=== PATIENT | female | born 1950 | race Caucasian/White ===

== ENCOUNTER 2018-05-07 16:00 | Outpatient (CLI) | payer MEDICARE, OTHER, SELFPAY ==
--- NOTE | 2018-05-07 11:20 | DI.MAMMO_ITS ---
SYMPTOM/DIAGNOSIS: SCREENING, Z12.31 MAMMOGRAMS: Mammograms were interpreted according to the usual protocol including computer analysis with CAD system, tomosynthesis and C view imaging. Comparison is made with prior examinations. Breast density, Category C. No masses or microcalcifications are seen. There is nothing to suggest malignancy. IMPRESSION: Negative mammogram. Routine screening is recommended. Category 1C. MQSA ASSESSMENT OF FINDINGS: Negative. Category 1. Patient will receive a letter notifying them of these results. Bi-RADS category C. The breasts are heterogeneously dense, which may obscure small masses.
== END 2018-05-07 16:20 ==
PROVIDERS: Visit Provider Nurse Practitioner Family
DX: Z12.31 Encounter for screening mammogram for malignant neoplasm of breast (principal)
CPT/HCPCS: 77063; 77067

== ENCOUNTER 2018-05-31 12:08 | Outpatient (CLI) | payer MEDICARE, OTHER, SELFPAY ==
--- NOTE | 2018-05-31 11:08 | DI.RAD_ITS ---
SYMPTOMS/DIAGNOSIS: PAIN, SWELLING RIGHT FOOT: There is a nondisplaced fracture seen at the base of the fifth metatarsal. No additional fractures are seen. The bones appear osteopenic. Heel spurs are incidentally noted. IMPRESSION: Nondisplaced fracture of the fifth metatarsal.
== END 2018-05-31 12:28 ==
PROVIDERS: Visit Provider Orthopaedic Surgery
DX: M79.671 Pain in right foot (principal); S92.354A Nondisplaced fracture of fifth metatarsal bone, right foot, initial encounter for closed fracture; I10 Essential (primary) hypertension; W01.0XXA Fall on same level from slipping, tripping and stumbling without subsequent striking against object, initial encounter
CPT/HCPCS: 99211; 99214; 73630

== ENCOUNTER → 2018-10-25 09:32 | Outpatient (BNVA) | payer MEDICARE, OTHER, SELFPAY | PROVIDERS: Visit Provider Orthopaedic Surgery | DX: M70.62 Trochanteric bursitis, left hip (principal) | CPT/HCPCS: 20610; 99212; 99213; J1040 ==

== ENCOUNTER 2018-11-29 12:19 | Outpatient (CLI) | payer MEDICARE, OTHER, SELFPAY ==
--- NOTE | 2018-11-29 10:29 | DI.RAD_ITS ---
SYMPTOMS/DIAGNOSIS: PAIN LEFT HIP AND PELVIS: Two views were obtained. There is mild narrowing of the cartilaginous joint spaces of both hips spurring. Mild hypertrophic spurring of the acetabula noted bilaterally. Mild spurring of the greater trochanter is also noted bilaterally. CONCLUSION: Mild DJD both hips.
== END 2018-11-29 12:39 ==
PROVIDERS: Visit Provider Orthopaedic Surgery
DX: M25.552 Pain in left hip (principal); M16.0 Bilateral primary osteoarthritis of hip; Z98.890 Other specified postprocedural states
CPT/HCPCS: 99211; 99213; 73502

== ENCOUNTER 2018-12-10 00:25 | Outpatient (CLI) | payer MEDICARE, OTHER, SELFPAY ==
--- NOTE | 2018-12-10 09:38 | DI.MRI_ITS ---
SYMPTOMS/DIAGNOSIS: LEFT HIP PAIN, LEFT TROCHANTERIC BURSITIS, M25.552, M70.62 MRI OF THE PELVIS AND LEFT HIP: Comparison is made with plain films dated November,. T1 and fat-suppressed T2 axial, T1 and STIR coronal, fat-suppressed T2 and fat-suppressed proton density sagittal sequences were performed. The exam is somewhat limited by the patient's body habitus. There is a mild amount of edema directly adjacent to the left greater trochanter. There is spurring from the greater trochanter. There is a small amount of joint fluid in the left hip, slightly greater than the right hip. There is no evidence of a fracture. The femoral heads appear intact. The uterus, bladder and ovaries are unremarkable. IMPRESSION: Spurring at the greater trochanter. There is a mild amount of high signal in the distal gluteus medius tendon and around the greater trochanter. There is no significant fluid in the greater trochanteric bursa. No significant tear of the gluteus medius tendon is seen.
== END 2018-12-10 00:45 ==
PROVIDERS: Visit Provider Orthopaedic Surgery
DX: M25.552 Pain in left hip (principal); M70.62 Trochanteric bursitis, left hip
CPT/HCPCS: 73721

== ENCOUNTER → 2018-12-13 10:08 | Outpatient (BNVA) | payer MEDICARE, OTHER, SELFPAY | PROVIDERS: Visit Provider Orthopaedic Surgery | DX: M70.62 Trochanteric bursitis, left hip (principal); I10 Essential (primary) hypertension | CPT/HCPCS: 99213 ==

== ENCOUNTER 2018-12-19 11:28 | Day surgery (SDC) | payer MEDICARE, OTHER, SELFPAY ==
[2018-12-19] VITALS (7 sets, daily range): BP systolic 134–175; BP diastolic 64–88; PULSE 73–109; RESP 12–16; TEMP 36.6–37; O2SAT 94–97
[2018-12-19] MEDS: Lactated Ringers 1,000 ML 80 ML IV ×2 (12:10→14:25)
--- NOTE | 2018-12-19 12:33 | HPE_ITS ---
Assessment and Plan (1) Iliotibial band syndrome, left leg: Current visit: Yes Status: Acute Plan: Educated patient on surgery covering surgical technique, recovery process, benefits and risks including but not limited to risk of infection, blood clot, damage to soft tissue/blood vessels/nerves in detail. After discussion patient gives verbal understanding of risks and elects to proceed with surgery today. Patient had opportunity to have questions answered to her satisfaction. Patient will continue to be scheduled for left trochanter bursa debridement and ITB tenotomy with Dr. Evans on 12/19/18. History of Present Illness Narrative: Ms. Whitmore is a 68-year-old female presents clinic for preoperative visit for scheduled left trochanteric bursa debridement and tenotomy of IT band with Dr. Evans on 12/19/2018. She originally developed atraumatic lateral based hip pain in late August 2018. Pain is aggravated when she first woke up in the morning as well as with prolonged standing and sitting. Patient would frequently have to move during the middle the night to avoid laying directly on the left hip for an extended amount of time. Patient had tried trial of ice, NSAIDs and prednisone taper with only minor symptomatic improvement. Due to patient's continued discomfort she received trochanteric bursal injection on 10/25/2018. Unfortunately, patient did not experience pain relief following injection. She had an MRI completed which as per Dr. Evans's note on 12/13/2018 stated no bony abnormality seen the hip joint on the left is well- maintained. No masses or fluid collection seen. No evidence of avascular necrosis. Following discussion of treatment options at her last orthopedic appointment patient elected to proceed with surgery since she had failed conservative therapies. Pertinent Surgical Information Denies past medical history of: stroke, cardiac issues, angina, asthma, COPD, sleep apnea, renal issues, liver issues, hepatitis, bleeding disorders, seizures, recent migraines, diabetes, autoimmune disorders, thyroid issues Reports history of nausea and vomiting in the past but denies any adverse reactions with her last two operations at [facility]. Denies prior complications from surgery or anesthesia. Review of Systems Constitutional Denies fever(s), Denies frequent falls and Denies headache(s) Eyes Denies change in vision ENT Denies dizziness, Denies ear discharge, Denies headache(s), Denies epistaxis, Denies nasal discharge and Denies sore throat Cardiovascular Denies chest pain, Denies rapid heart rate, Denies irregular heart rhythm, Denies dyspnea, Denies dyspnea on exertion and Denies slow heart rate Respiratory Denies cough, Denies dyspnea, Denies dyspnea on exertion and Denies wheezing Gastrointestinal Denies abdominal pain, Denies melena, Denies hematochezia, Denies constipation, Denies diarrhea, Denies nausea and Denies vomiting Genitourinary Denies hematuria, Denies dysuria and Denies urinary urgency Musculoskeletal Reports as per HPI, Denies numbness and Denies tingling Neurologic Denies dizziness, Denies frequent falls, Denies headache(s), Denies numbness and Denies tingling Psychiatric Reports anxiety and Denies depression Allergic/Immunologic Denies wheezing PFSH Medical History Migraine (Resolved) Pancreatitis (Resolved) Cerebral meningioma Obesity History of postoperative nausea and vomiting (Resolved) Collar bone fracture (Resolved) Iliotibial band syndrome, left leg (Acute) Anxiety (Chronic) Hypertension (Chronic) History of gastroesophageal reflux (GERD) (Chronic) Trimalleolar fracture (Resolved 12/20/13) Lymphedema (Acute 10/03/17) Irritable colon (Acute) Hyperbilirubinemia (Acute) Gastritis (Acute 08/09/13) Foot pain, bilateral (Acute 03/05/15) Depressive disorder (Chronic) Chronic pain of left knee (Chronic 10/05/15) Ankle fracture (Resolved 06/03/14) Surgical History Appendectomy Cholecystectomy (~1976) Colonoscopy - IV Sedation (~2004) PROCEDURES section Ligation of fallopian tube (~1976) History of surgery (Chronic) Social History Smoking/Tobacco Use Status: Never Alcohol Intake: never Drug use: Never Substance use type: does not use Do you feel safe at home: Yes Do you feel safe in your relationship?: Yes Meds Home Medications Medication Instructions Recorded Confirmed Type aspirin [Ecotrin Low Strength] 81 mg PO DAILY tab-cap 01/28/13 12/19/18 History promethazine 25 mg PO Q12H PRN #12 tab-cap 09/18/17 12/19/18 History citalopram 30 mg PO DAILY #135 tab-cap 03/26/18 12/19/18 Rx hydrochlorothiazide 12.5 mg capsule 12.5 mg PO DAILY #30 cap 12/03/18 12/19/18 Rx lisinopril 20 mg tablet 20 mg PO DAILY #30 tab 12/03/18 12/19/18 Rx ibuprofen-diphenhydramine cit 1 cap PO QHS 12/19/18 12/19/18 History [Advil PM] Allergies Allergy/AdvReac Type Severity Reaction Status Date / Time Penicillins Allergy Intermediate HIVES Verified 12/19/18 11:53 prochlorperazine edisylate AdvReac Intermediate DYSTONIA Verified 12/19/18 11:53 [From Compazine] Exam Const General: cooperative and no acute distress [facility] Head: normal to inspection, normocephalic and atraumatic Ears: external ears normal General nose exam: external nose normal and no nasal discharge Face and sinus: face symmetric Eyes General: appearance normal, both eyes and all related structures Resp Effort & Inspection: normal respiratory effort and able to speak in complete sentences Auscultation: clear to auscultation bilaterally, no rales, no rhonchi and no wheezes Cardio Heart Sounds: S1 normal, S2 normal and no murmurs Results Last Vital Signs Temp 37.0 C 12/19/18 11:59 Pulse 73 12/19/18 11:59 Resp 16 12/19/18 11:59 BP 157/85 H 12/19/18 11:59 Pulse Ox 94 L 12/19/18 11:59
[2018-12-19] MEDS: ceFAZolin 2 GM/50 ML BAG IVPB (13:55)
--- NOTE | 2018-12-19 15:00 | W.PM.DSUDISC ---
Discharge Plan Disposition Patient Disposition: HOME Condition: Good Discharge Details Reason For Visit: Tenotomy of iliotibial band L Attending Provider: Venkatesh Evans Primary Care Provider: Stephanie Hernández Home Meds and New Rx's Prescriptions: New hydrocodone-acetaminophen 5-325 mg tablet 1 tab PO Q4H PRN (Reason: pain) Qty: 20 RF: 0 ibuprofen 800 mg tablet 800 mg PO TID Qty: 30 RF: 0 Continued aspirin [Ecotrin Low Strength] 81 MG tablet,delayed release (DR/EC) 81 mg PO DAILY RF: 0 promethazine 25 MG tablet 25 mg PO Q12H PRNQty: 12 RF: 1 citalopram 20 MG tablet 30 mg PO DAILY Qty: 135 RF: 4 hydrochlorothiazide 12.5 mg capsule 12.5 mg PO DAILY Qty: 30 RF: 6 lisinopril 20 mg tablet 20 mg PO DAILY Qty: 30 RF: 6 ibuprofen-diphenhydramine cit [Advil PM] 200-38 mg Tablet 1 cap PO QHS RF: 0 Discharge Instructions Additional Instructions: Crutches to walk. May put as much weight on L leg as your discomfort allows. Apply ice bag or frozen vegetables to outside of hip/thigh 4-6 times/day for 1 hour each time to decrease pain and swelling. May remove dressings, shower and get incision wet after 72 hours. After showering, pat incision dry and cover with light gauze dressing. Take ibuprofen as prescribed for 10 days. Take hydrocodone ,if needed, for breakthru pain. Follow up with in 2 weeks. Referrals: Venkatesh Evans MD [ [facility] STAFF PHYSICIAN] - (f/u in 2 weeks.) Equipment/Supplies: Partial Weight Bearing Crutches Activity:: Activity as Tolerated Remove Dressings/Wound Care:: 72 hours Shower/Bathe:: 72 hours Diet:: As Tolerated Discharge Orders Discharge Orders: Discharge Order (Routine); Ordered 12/19/18 Ordered By: Venkatesh Evans DS: Diagnosis Discharge Diagnosis (1) Iliotibial band syndrome, left leg: Status: Acute (2) Trochanteric bursitis of left hip: Status: Acute
--- NOTE | 2018-12-20 09:36 | ROE_ITS ---
REPORT OF OPERATIVE PROCEDURE DATE OF PROCEDURE December 19, 2018 PREOPERATIVE DIAGNOSES Chronic trochanteric bursitis, contracted iliotibial band left. POSTOPERATIVE DIAGNOSES Chronic trochanteric bursitis, contracted iliotibial band left. PROCEDURES Tenotomy iliotibial band on the left, excision of trochanteric bursa left. ANESTHESIA General by Andrew Wu C.R.N.A. SURGEON Venkatesh Evans M.D. CIVIL PREPAREDNESS COORDINATOR Juliocesar Osborne INCIDATIONS This is a 68-year-old white female with chronic trochanteric bursitis on the left. This has been pres ent for several years. It has not responded to conservative treatment. She finds the pain now to be d isabling. Tenotomy of the iliotibial band with excision of the trochanteric bursa was recommended to alleviate her pain due to the failure of conservative treatment. The risks and complications of the procedure were explained to the patient in detail preoperatively. PROCEDURE DESCRIPTION The patient was taken to the Operating Room 12/19/2018. She was placed supine on the operating table. A general anesthetic was administered. She was then turned to the left lateral position. The left la teral thigh was prepped and draped in the usual sterile fashion. A longitudinal incision was made beg inning at the proximal tip of the greater trochanter and extending distally about 6 or 7 inches. A lo nger incision was necessary because obesity. The incision was carried through the subcu fat down to t he iliotibial band. Subcutaneous bleeders were cauterized. The IT band was then longitudinally incise d exposing the trochanteric bursa. The trochanteric bursa was excised. At that point, I placed my fin ryan between the iliotibial band and the lateral flare of the femur at the trochanter. At the point of maximum compression, I performed a transverse tenotomy of the IT band. I repaired the longitudinal incision of the IT band only with interrupted [id number] sutures of #1-Vicryl suture material. The transverse tenotomy was left alone. The wound was irrigated with Betadine and saline solution. The wound margins were infiltrated with 0. 05% Marcaine with epinephrine solution. The subcu was approximated with interrupted #2-0 Vicryl sutur es and the skin edges were approximated with tension-relieving sutures [id number] using #3-0 N ylon. The wound was dressed with Xeroform gauze, sterile gauze 4x4s and ABD pad and tape with elastic tape for a pressure dressing. The patient was turned supine. Her anesthesia was reversed without complications. She was discharged to the Recovery Room in good condition. ESTIMATED BLOOD LOSS 50 cc. The patient was later discharged home from the Day Surgery Unit when fully recovered from her General anesthesia. She was given instructions to use crutches to walk. She may be weightbearing as tolerate d to the left leg. She should apply ice to the incision every 4 to 6 hours for an hour at a time to help with pain and s welling. She was given a prescription for inflammation and swelling of ibuprofen 800 mg p.o. t.i.d. for 10 day s. She was given a prescription for breakthrough pain of hydrocodone with APAP 5/325 1 tablet every 4 ho urs as needed. She may remove her dressings, shower and get her incision wet after 72 hours. She is to cover the inc ision with a light gauze dressing after showering. She should followup with Dr. Evans in two weeks.
== END 2018-12-19 17:21 | disposition home or self-care (01) ==
PROVIDERS: Visit Provider Orthopaedic Surgery
PROC: (CPT 27062; principal; 2018-12-19 14:00)
DX: M70.62 Trochanteric bursitis, left hip (principal); M76.32 Iliotibial band syndrome, left leg; I10 Essential (primary) hypertension
CPT/HCPCS: 27062; 27305; NC; J0131; J0690; J1100; J2370; J2405

== ENCOUNTER → 2019-01-02 09:15 | Outpatient (BNVA) | payer MEDICARE, OTHER, SELFPAY | PROVIDERS: Visit Provider Orthopaedic Surgery | DX: Z47.89 Encounter for other orthopedic aftercare (principal); M70.62 Trochanteric bursitis, left hip ==

== ENCOUNTER → 2019-01-30 09:15 | Outpatient (BNVA) | payer MEDICARE, OTHER, SELFPAY | PROVIDERS: Visit Provider Orthopaedic Surgery | DX: Z47.89 Encounter for other orthopedic aftercare (principal); M25.552 Pain in left hip; I10 Essential (primary) hypertension ==

== ENCOUNTER → 2019-03-13 09:27 | Outpatient (BNVA) | payer MEDICARE, OTHER, SELFPAY | PROVIDERS: Visit Provider Orthopaedic Surgery | DX: Z47.89 Encounter for other orthopedic aftercare (principal); I10 Essential (primary) hypertension; M70.62 Trochanteric bursitis, left hip ==

== ENCOUNTER → 2019-04-24 08:48 | Outpatient (BNVA) | payer MEDICARE, OTHER, SELFPAY | PROVIDERS: Visit Provider Orthopaedic Surgery | DX: Z47.89 Encounter for other orthopedic aftercare (principal); I10 Essential (primary) hypertension; M76.32 Iliotibial band syndrome, left leg | CPT/HCPCS: 99213 ==

== ENCOUNTER 2019-06-03 00:51 | Outpatient (CLI) | payer MEDICARE, OTHER, SELFPAY ==
--- NOTE | 2019-06-03 17:13 | DI.MAMMO_ITS ---
EXAM: MAMMO SCREENING CLINICAL HISTORY: SCREENING Z12.39 TECHNIQUE: Mammograms were interpreted according to the usual protocol including computer analysis w [facility] CAD system, tomosynthesis and C-view imaging. FINDINGS: The breasts are heterogeneously dense. No dominant mass or clumped microcalcification identified in e ither breast. Current examination is compared with previous examinations including April 2018 and there has been no gross interval change appearance in comparison with the previous studies. IMPRESSION: No specific evidence of malignancy at this time. Routine screening examinations are suggested at yea rly intervals due to the family history of breast carcinoma. Category 1. Breast density, category C. BI-RADS Cat 1 - Negative. Breast Density - Category C - Heterogeneously dense.
== END 2019-06-03 01:11 ==
PROVIDERS: Visit Provider Nurse Practitioner Family
DX: Z12.31 Encounter for screening mammogram for malignant neoplasm of breast (principal); Z80.3 Family history of malignant neoplasm of breast
CPT/HCPCS: 77063; 77067

== ENCOUNTER 2019-06-18 02:37 | Outpatient (CLI) | payer MEDICARE, OTHER, SELFPAY ==
[2019-06-18 11:09] LABS: ALT 36 U/L (14-59); AST 22 U/L (15-37); Alkaline Phosphatase 70 U/L (46-116); Anion Gap 6.6 mmol/L (3-11); BUN 21 mg/dL (7-18); Bilirubin, Total 1.7 mg/dL (0.2-1.0); CO2 30.4 mmol/L (21.0-32.0); CREATININE 0.72 mg/dL (0.55-1.02); Calcium 8.8 mg/dL (8.5-10.1); Chloride 104 mmol/L (98-107); Glucose 101 mg/dL (70-100); Potassium 4.2 mmol/L (3.5-5.1); Sodium 141 mmol/L (136-145); Total Protein 7.2 g/dL (6.4-8.2)
== END 2019-06-18 02:57 ==
DX: I10 Essential (primary) hypertension (principal)
CPT/HCPCS: 36415; 80053

== ENCOUNTER 2019-07-07 10:12 | Emergency (ER) | payer MEDICARE, SELFPAY ==
[2019-07-07] VITALS (23 sets, daily range): BP systolic 146–196; BP diastolic 64–81; PULSE 80–102; RESP 15–23; TEMP 37.2; O2SAT 92–97
--- NOTE | 2019-07-07 10:22 | ED.GENADUL_ITS ---
Discharge Plan Disposition Patient Disposition: HOME Condition: Improving Discharge Details Chief Complaint: GenMedical Clinical Impression: Pneumonia Primary Care Provider: Stephanie Hernández ED Provider: Karoline Alcaraz Home Meds and New Rx's Prescriptions: New doxycycline hyclate 100 mg capsule 100 mg PO BID Qty: 14 RF: 0 Continued Prevnar 13 (PF) 0.5 mL syringe 0.5 ml IM ONCE Qty: 0.5 RF: 0 Shingrix (PF) 50 mcg/0.5 mL suspension for reconstitution 0.5 ml IM ONCE Qty: 1 RF: 0 hydrochlorothiazide 12.5 mg capsule 12.5 mg PO DAILY Qty: 90 RF: 4 lisinopril 20 mg tablet 20 mg PO DAILY Qty: 90 RF: 4 aspirin [Ecotrin Low Strength] 81 MG tablet,delayed release (DR/EC) 81 mg PO DAILY RF: 0 citalopram 20 mg tablet 30 mg PO DAILY Qty: 135 RF: 4 promethazine 25 mg tablet 25 mg PO Q12H PRN (Reason: nausea and vomiting) Qty: 30 RF: 0 ibuprofen-diphenhydramine cit [Advil PM] 200-38 mg Tablet 1 cap PO QHS RF: 0 Discharge Instructions Instructions: Pneumonia (ED) Additional Instructions: Encourage hydration. Tylenol and ibuprofen as needed for discomfort. Please take the doxycycline as prescribed. Please follow-up with primary care provider this week for reevaluation. If you develop increased headache, difficulty breathing, shortness of breath, fevers or other new/worsening symptoms please seek care urgently once again. Referrals: Stephanie Hernández NP [Primary Care Provider] - Discharge Data Discharge Date/Time-TO BE ENTERED AT DEPARTURE: 07/07/19 13:42 Medical Decision Making Patient is a 69-year-old female, accompanied by her , with chief complaint of cough, general malaise, headache, and feeling nauseated the past 2 weeks. States his symptoms initially began with cough and mild URI symptoms. Had an episode 2 weeks ago brief vertigo. Has not had a recurrence of this since. Patient reports she has had similar headaches historically and was diagnosed with migraine variant. Patient states that his headache has been intermittent since and there was no other symptoms began 2 weeks ago. No thunderclap onset, pain has been variable, feels similar to headaches in the past. Currently endorsing nausea. Denies fevers but has been feeling warm. States that she has had a soft bowel movements. Endorses cough has been productive. Denies shortness of breath. No recent travel. No lower extremity edema or pain. Denies any chest pain or pleuritic pain. Feels that I cannot take a full deep breath. On exam, patient appears nontoxic. She is resting comfortably. While in the room, HR was in the 80s although initially documented as 102 by nursing staff. O2 97%. Afebrile. Hypertensive at 196/81 although this quickly came down to the 170s. Patient states that over the past month she has been more hypertensive than typical despite taking her medications. Reviewed recent note, PCP had asked that she track her BP while at home. Patient states that she took this once at home with systolic in the 170s and once at the dentists with systolic in the 180s. She has a normal neurologic exam. No temporal pain with palpation. ECG reviewed by Dr. Arguelles, NSR rate of 90, no acute ischemic changes noted. Labs reviewed. Leukocytosis a white count 15. Absolute neutrophil elevated at 12.1. Coags normal. Chemistry noticed without significant abnormality. P is elevated at 7.36. ESR is elevated at 53. Head CT reviewed by radiologist: FINDINGS: Brain: There is no evidence for acute intracranial hemorrhage. Cisterns and sulci appear intact. Harrington-white matter differentiation is appropriate. Ventricles: Normal. No ventriculomegaly. Bones/joints: Status post right temporal craniotomy change. Sinuses: Visualized sinuses are unremarkable. No fluid levels. Mastoid air cells: Visualized mastoid air cells are well aerated. Soft tissues: Unremarkable. IMPRESSION: No evidence for acute intracranial abnormality. Chest x-ray reviewed by radiologist: FINDINGS: Lungs: There is some minimal coarse increased markings at the right lung base medially. There are some scattered granulomata seen in both lungs upper lobe and right lower lobe. Pleural space: Unremarkable. No pleural effusion. No pneumothorax. Heart/Mediastinum: Unremarkable. No cardiomegaly. Bones/joints: Mild thoracic spondylosis. IMPRESSION: Probable right lower lobe atelectasis. Early consolidation considered less likely but not excludable. History of early consolidation with make sense clinically given the patient's URI symptoms, cough, leukocytosis. I did consider pulmonary embolism but as patient is not tachycardic, hypoxic have lower extremity discomfort, I find this less likely. As the patient has an acute infection, I believe that her d-dimer is likely be falsely elevated and do not feel that this is appropriate testing at this time. Rather, prefer to treat the patient with doxycycline and have close follow-up with primary care. She is given strict return precautions. This infection is likely causing her known migraines to exacerbate once again. While the patient is having elevated inflammatory markers at this time, she does not have any temporal pain with palpation, no jaw claudication. Feel that temporal arteritis is less likely particularly as there is other source of her symptoms at this point and she has had this exact headache multiple times historically. Patient is discussed my differentials at length. This point, her symptoms are most consistent with a finding of pneumonia on exam. I encouraged hydration. She is feeling much improved after migraine cocktail, was able to tolerate antibiotics well. She is requesting discharge point. She is able to hydrate orally. Is able to return with any new or worsening symptoms. She will follow- up with her primary care this week for reevaluation. She is given strict return precautions. All of her questions and concerns were addressed and she is in agreement this plan. HPI General Mode of arrival: ambulatory . Date/Time Provider Initiated Documentation: 07/07/19 10:22 . Limitations to Documentation: no limitations . Information obtained by: patient, family () and RN notes reviewed . HPI Narrative: Patient is a 69 year old female, accompanied by , with c/c of NGUYEN, bahai pain, feeling out of it . States that symptoms began 2 weeks ago. Initially, she was feeling cloudy and had a brief episode of vertigo. States she has not had vertigo historically but had a sudden onset of the room spinning which resolved quickly. No symptoms like this since. Reports chronic migraine variants that typically manifested with mild NGUYEN and bilateral bahai pain. Had surgical excision of mass this right bahai but no change in symptoms post operatively. Also endorses productive cough for that time. Denies SOB but f eels like I cant take a deep breath. Denies pleuritic pain. Denies CP. No objective fevers but endorses feeling warm. Related Data Home Medications Medication Instructions Recorded Confirmed aspirin [Ecotrin Low Strength] 81 mg PO DAILY tab-cap 01/28/13 07/07/19 ibuprofen-diphenhydramine cit 1 cap PO QHS 12/19/18 07/07/19 [Advil PM] citalopram 20 mg tablet 30 mg PO DAILY #135 tab-cap 04/08/19 07/07/19 hydrochlorothiazide 12.5 mg capsule 12.5 mg PO DAILY #90 cap 05/29/19 07/07/19 lisinopril 20 mg tablet 20 mg PO DAILY #90 tab 05/29/19 07/07/19 pneumoc 13-heike conj-dip cr(PF) 0.5 0.5 ml IM ONCE #0.5 ml 05/29/19 07/07/19 mL IM syringe varicella-zoster [id number] (PF) 50 0.5 ml IM ONCE #1 each 05/29/19 07/07/19 mcg/0.5 mL IM susp, kit promethazine 25 mg tablet 25 mg PO Q12H PRN #30 tab 07/04/19 07/07/19 doxycycline hyclate 100 mg PO BID #14 cap 07/07/19 Previous Rx's Medication Instructions Recorded citalopram 20 mg tablet 30 mg PO DAILY #135 tab-cap 04/08/19 hydrochlorothiazide 12.5 mg capsule 12.5 mg PO DAILY #90 cap 05/29/19 lisinopril 20 mg tablet 20 mg PO DAILY #90 tab 05/29/19 pneumoc 13-heike conj-dip cr(PF) 0.5 0.5 ml IM ONCE #0.5 ml 05/29/19 mL IM syringe varicella-zoster [id number] (PF) 50 0.5 ml IM ONCE #1 each 05/29/19 mcg/0.5 mL IM susp, kit promethazine 25 mg tablet 25 mg PO Q12H PRN #30 tab 07/04/19 doxycycline hyclate 100 mg PO BID #14 cap 07/07/19 Allergies Allergy/AdvReac Type Severity Reaction Status Date / Time Penicillins Allergy Intermediate HIVES Verified 07/07/19 10:21 prochlorperazine edisylate AdvReac Intermediate DYSTONIA Verified 07/07/19 10:21 [From Compazine] General Stated Complaint: GenMedical BRAN: 3 Review of Systems Constitutional Constitutional: Reports as per HPI, Denies chills, Reports fatigue, Denies fever(s), Reports headache(s), Denies lethargy, Reports malaise and Denies poor appetite Eyes Eyes: Denies change in vision ENT Ears, Nose, Mouth, and Throat: Denies dizziness and Reports headache(s) Cardiovascular Cardiovascular: Reports as per HPI, Denies chest pain, Denies chest pain with activity, Denies pedal edema, Denies irregular heart rhythm, Denies leg edema, Reports lightheadedness, Denies radiating jaw, neck or arm pain, Denies palpitations (Reports that she has had rapid heart rate historically but none recently), Denies dyspnea and Denies dyspnea on exertion Respiratory Respiratory: Reports as per HPI, Denies chest congestion, Reports cough, Denies hemoptysis, Denies excessive phlegm production, Denies pain on inspiration, Denies pain with cough, Denies dyspnea, Denies dyspnea on exertion and Denies wheezing Gastrointestinal Gastrointestinal: Reports as per HPI, Denies abdominal pain, Reports change in stool character (states this has been softer than normal), Denies diarrhea, Reports nausea and Denies vomiting Musculoskeletal Musculoskeletal: Reports as per HPI and Denies back pain Integumentary/Breasts Skin/Breast: Reports as per HPI and Denies rash Neurologic Neurologic: Reports as per HPI, Denies dizziness and Reports headache(s) Endocrine Endocrine: Reports fatigue and Denies palpitations (Reports that she has had rapid heart rate historically but none recently) Allergic/Immunologic Allergic/Immunologic: Denies wheezing [facility] Medical History Ankle fracture (Resolved 06/03/14) right, ORIF 01/01 Anxiety (Chronic) Cerebral meningioma Benign 2003 Chronic pain of left knee (Chronic 10/05/15) Collar bone fracture (Resolved) Depressive disorder (Chronic) anxiety Foot pain, bilateral (Acute 03/05/15) Gastritis (Acute 08/09/13) 2008 Walko, EGD, bile gastritis (2009 GI eval at [facility], visceral hypersensitivity) History of gastroesophageal reflux (GERD) (Chronic) History of postoperative nausea and vomiting (Resolved) Hyperbilirubinemia (Acute) GILBERT'S DISEASE Hypertension (Chronic) Iliotibial band syndrome, left leg (Acute) Irritable colon (Acute) Lymphedema (Acute 10/03/17) right axilla Migraine (Resolved) FOLLOWED BY DR AMITA MONTEMAYOR, [facility] Reports no longer experiences migraines Obesity Pancreatitis (Resolved) Trimalleolar fracture (Resolved 12/20/13) Surgical History Appendectomy section 1973,1976 Cholecystectomy (~1976) Colonoscopy - IV Sedation (~2004) History of surgery (Chronic) a. Cholecystectomy. b. . c. Brain surgery. Ligation of fallopian tube (~1976) PROCEDURES CRANIOTOMY, 08/24 FRONTAL TEMPORAL CRANIOTOMY FOR RESECTION OF MENINGIOMA EXPLORATORY LAPAROTOMY ENDOSC RETRO CHOLANGIOPA Repair of R ankle Fx 2013;RIGHT COLLORBONE REPAIR Family History (Updated 05/31/19 @ 10:00 by Vincent Edge) Mother , age 47 Depression Father , age 84 Bladder cancer Sister Bladder cancer Sister Stroke Sister Primary fibromyalgia syndrome Brother Epilepsy Mental retardation Brother , age 70 Cancer Maternal Grandfather Heart disease Paternal Grandfather Cancer Maternal Grandmother Stroke Paternal Grandmother No problems noted. Daughter Wilms' tumor Daughter Depression Daughter Depression Social History Smoking/Tobacco Use Status: Never Alcohol Intake: never Drug use: Never Substance use type: does not use Caregiver/Support person: No Household members: spouse Housing: house Do you need help understanding health information?: Rarely Pets and animals: No Sexually active: No Do you think of yourself as: straight/heterosexual Current gender identity: female What is your relationship status?: How often do you talk on the phone with friends or family?: three or more times per week How often do you get together with friends or relatives?: once per week How often do you attend roman catholic or scientology services?: decline to answer Do you belong to any clubs or organized social groups?: no Panel score (0-1 are the most socially isolated patients): 2 What type of physical activity do you participate in: walking and other Duration: 15-30 minutes/day Frequency: 3-4 times per week Laxmi/Buddhism: Congregational Special laxmi needs: No Seatbelt use: always Drive intox or ride w/intox recycle driver: No Do you feel safe at home: Yes Do you feel safe in your relationship?: Yes Female Reproductive History Menstrual Menopause type: natural History History 3 Para 3 Hx # Term Pregnancies Multiple births Hx # Pregnancies Ectopic pregnancies AB induced Hx Number of Living Children AB spontaneous Exam Const General: cooperative, healthy appearing, comfortable, no acute distress and well developed Nutritional Appearance: well nourished and overweight Orientation: alert, awake and oriented x3 [facility] Head: normal to inspection, normocephalic and atraumatic Ears: hearing grossly normal bilaterally, external ears normal and TM's normal bilaterally General nose exam: external nose normal and nares normal Face and sinus: normal facial exam and sinuses nontender Mouth: oral mucosae normal, lip normal, moist mucous membranes, no muffled voice and no trismus Teeth and gingiva: dentition normal Throat: posterior oropharynx normal, tonsils normal and uvula midline Eyes General: appearance normal, both eyes and all related structures Visual Castillo: normal visual castillo by confrontation Alignment and Position: alignment normal Periorbital: periorbital findings normal Eyelids: eyelids normal Conjunctivae: conjunctivae normal Pupils: PERRL EOM: EOM intact bilaterally Chest Chest: normal inspection of the chest, normal palpation of entire chest wall and no crepitus Resp Effort & Inspection: normal respiratory effort, able to speak in complete sentences and no respiratory distress Auscultation: clear to auscultation bilaterally, no rales, no rhonchi and no wheezes Cardio Rate: regular rate Rhythm: regular rhythm Heart Sounds: S1 normal and S2 normal GI Inspection: normal to inspection, no edema, non-distended and obesity Palpation: soft, no hepatosplenomegaly, not firm, no guarding, not rigid and nontender Auscultation: normal bowel sounds Back/Spine/Pelvis Back: no CVA tenderness Thoracic/Lumbar Spine: thoracic and lumbar spine normal to inspection Skin General skin exam: no rashes or lesions noted Trauma: no lacerations or abrasions Neuro General: alert, awake and oriented x3 Cranial Nerves: CN's II-XI intact bilaterally Cognition: normal cognition Speech: speech normal Gait: normal gait Motor: muscle tone normal throughout, strength 5/5 throughout, no pronator drift, no movement abnormalities noted and no fasciculations Sensory Exam: no sensory deficits noted Coordination: [id number] test normal, [id number] test normal and rapid alternating movement UE normal Extrem General: normal to inspection, normal capillary refill, no pedal edema, no calf tenderness and normal gait Psych Appearance: grossly normal and well kempt Mental Status: mental status grossly normal Speech and Movement: speech and movement normal Course Vital Signs Vital signs: Vital Signs Temperature 37.2 C 07/07/19 10:18 Pulse 102 H 07/07/19 10:18 Respiratory Rate 20 07/07/19 10:18 Blood Pressure 196/81 H 07/07/19 10:18 Pulse Oximetry 97 07/07/19 10:18 Temperature 37.2 C 07/07/19 10:18 Temperature Source Tympanic 07/07/19 10:18 Pulse 102 H 07/07/19 10:18 Respiratory Rate 20 07/07/19 10:18 Blood Pressure 196/81 H 07/07/19 10:18 Pulse Oximetry 97 07/07/19 10:18 Oxygen Delivery Method Room Air 07/07/19 10:18 Oxygen Flow Rate 0 07/07/19 10:18 Pain Level 3 07/07/19 10:18
[2019-07-07] MEDS: Normal Saline Flush 10 ML SYR IVP (11:00)
[2019-07-07] MEDS: Normal Saline 1,000 ML 150 ML IV (11:05)
[2019-07-07 11:06] LABS: Abs Immature Grans 0.11 k/cumm (0.0-0.09); Absolute Monocyte Count 1.11 k/cumm (0.11-0.7); Basophils % 0.3; Eosinophils % 3.3; HCT 37.7 % (36.0-46.0); HGB 12.6 g/dL (12.0-15.5); Immature Grans % 0.7; Lymphocytes % 8.6; Mean Corp. HGB Concentration 33.4 g/dL (32.0-36.0); Mean Corpuscular Hemoglobin 28.8 pg (27.0-33.0); Mean Corpuscular Volume 86.3 fL (80-95); Mean Platelet Volume 10.4 fL (8.0-11.0); Monocytes % 7.3; Neutrophils % 79.8; Platelet Count 297 x1000/uL (130-400); RBC 4.37 m/cumm (4.00-5.20); White Blood Cell Count 15.16 k/cumm (4.4-10.8)
[2019-07-07 11:10] LABS: Absolute Basophil Count 0.05 k/cumm (0.0-0.2)
[2019-07-07 11:15] LABS: PTT Activated 28.6 sec (21.0-31.4); Prothrombin Time 10.1 sec (9.3-11.0)
[2019-07-07 11:17] LABS: ALT 25 U/L (14-59); AST 18 U/L (15-37); Albumin 3.7 g/dL (3.4-5.0); Alkaline Phosphatase 76 U/L (46-116); Anion Gap 6.8 mmol/L (3-11); BUN 11 mg/dL (7-18); Bilirubin, Total 1.5 mg/dL (0.2-1.0); C-Reactive Protein 7.36 mg/dL (0.0-0.3); CO2 29.2 mmol/L (21.0-32.0); CREATININE 0.72 mg/dL (0.55-1.02); Calcium 8.8 mg/dL (8.5-10.1); Chloride 103 mmol/L (98-107); Glucose 114 mg/dL (70-100); Potassium 3.9 mmol/L (3.5-5.1); Sodium 139 mmol/L (136-145); Total Protein 7.8 g/dL (6.4-8.2); Troponin I < 0.05 ng/mL (0.00-0.06)
--- NOTE | 2019-07-07 11:20 | DI.CT_ITS ---
EXAM: CT HEAD WO CLINICAL HISTORY: headache TECHNIQUE: Noncontrast . COMPARISON: HEAD WITHOUT CONTRAST from 05/24/2012 FINDINGS: The right temporal craniotomy is again noted. No intracranial hemorrhage, mass or infarct is seen. Th e ventricles are normal in size. There is no evidence of skull fracture. The orbits and visualized po rtions of the sinuses and mastoid air cells are unremarkable IMPRESSION: Old right temporal craniotomy. No acute abnormality.
--- NOTE | 2019-07-07 11:29 | DI.VRAD_ITS ---
PROCEDURE INFORMATION: Exam: CT Head Without Contrast Exam date and time: 07/07/2019 11:17 AM Clinical history: 69 years old, female; Other: Headache; Prior surgery; Surgery date: 6+ months; Surgery type: S/P right temporal hemangioma removal in 2003 per patient TECHNIQUE: Imaging protocol: Computed tomography of the head without contrast. Radiation optimization: All CT scans at this facility use at least one of these dose optimization techniques: automated exposure control; mA and/or kV adjustment per patient size (includes targeted exams where dose is matched to clinical indication); or iterative reconstruction. COMPARISON: No relevant prior studies available. FINDINGS: Brain: There is no evidence for acute intracranial hemorrhage. Cisterns and sulci appear intact. Harrington-white matter differentiation is appropriate. Ventricles: Normal. No ventriculomegaly. Bones/joints: Status post right temporal craniotomy change. Sinuses: Visualized sinuses are unremarkable. No fluid levels. Mastoid air cells: Visualized mastoid air cells are well aerated. Soft tissues: Unremarkable. IMPRESSION: No evidence for acute intracranial abnormality. COMMENT: Preliminary interpretation is based on receipt of 956 image(s). A final report will be issued subsequently. Dictated and Authenticated by: Kelsy Stokes MD. Ordering:LOU Ramey MD
--- NOTE | 2019-07-07 11:30 | DI.RAD_ITS ---
EXAM: XR CHEST 2V PA LATERAL INDICATION: SOB. COMPARISON: RIGHT CLAVICLE from 12/20/2013 TECHNIQUE: 2D digital imaging was performed. FINDINGS: Heart size is normal. The aorta is mildly tortuous but normal in diameter. There are mild chronic interstitial changes. No superimposed infiltrate, effusion or pulmonary edema edema is seen. Degene rative changes and scoliosis the thoracic spine. IMPRESSION: No acute abnormality.
--- NOTE | 2019-07-07 11:32 | DI.VRAD_ITS ---
PROCEDURE INFORMATION: Exam: XR Chest, 2 Views Exam date and time: 07/07/2019 11:24 AM Clinical history: 69 years old, female; Other: SOB TECHNIQUE: Imaging protocol: XR of the chest Views: 2 views. COMPARISON: CR RIGHT CLAVICLE LIMITED 1 VIEW 02/28/2014 10:27 AM FINDINGS: Lungs: There is some minimal coarse increased markings at the right lung base medially. There are some scattered granulomata seen in both lungs upper lobe and right lower lobe. Pleural space: Unremarkable. No pleural effusion. No pneumothorax. Heart/Mediastinum: Unremarkable. No cardiomegaly. Bones/joints: Mild thoracic spondylosis. IMPRESSION: Probable right lower lobe atelectasis. Early consolidation considered less likely but not excludable. COMMENT: Preliminary interpretation is based on receipt of 2 image(s). A final report will be issued subsequently. Dictated and Authenticated by: Kelsy Stokes MD. Ordering:LOU Ramey MD
[2019-07-07 11:37] LABS: Bilirubin Negative (Negative); Blood Negative (Negative); Clarity Clear (Clear); Glucose Negative (Negative); Ketones Negative (Negative); Leukocyte Esterase Negative (Negative); Nitrite Negative (Negative); Specific Gravity 1.015 (1.005-1.025); pH 8.5 (5-8)
[2019-07-07] MEDS: Lisinopril 10 MG TAB 20 MG PO (11:49)
[2019-07-07] MEDS: hydroCHLOROthiazide 25 MG TAB 12.5 MG PO (11:50)
[2019-07-07 12:11] LABS: ESR 53 mm/hr (0-30)
[2019-07-07] MEDS: Metoclopramide 10 MG/2 ML VIAL IVP (12:38)
[2019-07-07] MEDS: diphenhydrAMINE 50 MG/ML VIAL 25 MG IVP (12:39)
[2019-07-07] MEDS: Ketorolac 15 MG/ML VIAL IVP (12:41)
[2019-07-07] MEDS: Doxycycline Hyclate 100 MG CAP PO (12:42)
== END 2019-07-07 13:42 | disposition home or self-care (01) ==
PROVIDERS: Emergency Provider Physician Assistant
DX: J18.9 Pneumonia, unspecified organism (principal); R51 Headache; I10 Essential (primary) hypertension
CPT/HCPCS: 36415; 80053; 85652; 93005; 96361; 96374; 96375; 99285; 70450; 71046; 81003; 83735; 84484; 85025; 85610; 85730; 86140; 93010; J1200; J1885; J2765

== ENCOUNTER 2019-10-10 01:33 | Outpatient (CLI) | payer MEDICARE, SELFPAY ==
--- NOTE | 2019-10-10 09:15 | DI.US_ITS ---
EXAM: US ABDOMEN CLINICAL HISTORY: RUQ pain/discomfort, R10.11, Hx of fatty liver possibility in [address] COMPARISON: ABDOMEN RENAL ULTRASOUND from 10/02/2017 FINDINGS: Liver is again noted to be enlarged and shows fatty infiltration unchanged. No focal liver lesions or biliary dilatation is seen. The patient is status post cholecystectomy. The spleen, kidneys, oleary creas and aorta are unremarkable. There is no ascites. IMPRESSION: Moderate fatty infiltration of the liver.
== END 2019-10-10 01:53 ==
DX: R10.11 Right upper quadrant pain (principal); K76.0 Fatty (change of) liver, not elsewhere classified
CPT/HCPCS: 76700

== ENCOUNTER 2020-04-07 02:57 | Outpatient (CLI) | payer MEDICARE, SELFPAY ==
[2020-04-07 14:25] LABS: ALT 26 U/L (14-59); AST 16 U/L (15-37); Albumin 3.9 g/dL (3.4-5.0); Alkaline Phosphatase 58 U/L (46-116); Anion Gap 8.6 mmol/L (3-11); BUN 18 mg/dL (7-18); Bilirubin, Total 1.7 mg/dL (0.2-1.0); CO2 29.4 mmol/L (21.0-32.0); CREATININE 0.71 mg/dL (0.55-1.02); Calcium 8.8 mg/dL (8.5-10.1); Chloride 104 mmol/L (98-107); Glucose 92 mg/dL (74-106); Potassium 4.1 mmol/L (3.5-5.1); Sodium 142 mmol/L (136-145); Total Protein 7.1 g/dL (6.4-8.2)
== END 2020-04-07 03:17 ==
DX: I10 Essential (primary) hypertension (principal); Z87.19 Personal history of other diseases of the digestive system
CPT/HCPCS: 36415; 80053

== ENCOUNTER → 2020-05-15 08:58 | Outpatient (BNVA) | payer MEDICARE, SELFPAY | PROVIDERS: Visit Provider Student in an Organized Health Care Education/Training Program | DX: M76.892 Other specified enthesopathies of left lower limb, excluding foot (principal); I10 Essential (primary) hypertension | CPT/HCPCS: 99214 ==

== ENCOUNTER 2020-06-22 10:30 | Outpatient (CLI) | payer MEDICARE, SELFPAY | END 2020-06-22 10:50 | PROVIDERS: Visit Provider Physician Assistant | DX: M76.892 Other specified enthesopathies of left lower limb, excluding foot (principal); M25.552 Pain in left hip; I10 Essential (primary) hypertension | CPT/HCPCS: 20610; 99213; J1040 ==

== ENCOUNTER 2020-06-24 01:15 | Outpatient (CLI) | payer MEDICARE, SELFPAY ==
--- NOTE | 2020-06-24 15:09 | DI.MAMMO_ITS ---
EXAM: MG MAMMO SCREENING CLINICAL HISTORY: screening, Z12.39 TECHNIQUE: Bilateral full field digital CC and MLO mammographic images were obtained with 3D tomosyn thesis and utilizing computer aided detection (CAD). COMPARISON: Available for comparison. FINDINGS: Masses/Architectural Distortion: None seen. Microcalcifications: No suspicious pleomorphic-type are seen. Skin Thickening/Nipple Retraction: None. IMPRESSION: 1. No significant interval change with no specific features of malignancy noted. 2. Unless there is more urgent need, screening mammography is recommended, as per [employer] guidelines. BI-RADS Category 1 - Negative Breast Density - Category C - Heterogeneously dense The mammogram demonstrates the patient's breast tissue is dense. Dense breast tissue is very common a nd is not abnormal but dense breast tissue can make it harder to find cancer on a mammogram. Also, de nse breast tissue may increase their breast cancer risk. This information about the result of the [facility] mogram report was provided to the patient to raise their awareness. Use this report when you speak wi th the patient about their risks for breast cancer, which includes their family history. At that time , you may recommend for more screening tests (Ultrasound or MRI) as they might be useful based on the ir risk. A negative radiographic report should not delay biopsy if a dominant or clinically suspicious mass is present. Up to ten percent of cancers are not identified on mammography. A negative report may reinforce clinical impression. Adenosis and dense breasts may obscure an underlying neoplasm. False positive reports average 6 to 10%. Patient will receive a letter notifying them of these results.
== END 2020-06-24 01:35 ==
DX: Z12.31 Encounter for screening mammogram for malignant neoplasm of breast (principal)
CPT/HCPCS: 77063; 77067

== ENCOUNTER 2020-08-10 11:22 | Outpatient (CLI) | payer MEDICARE, SELFPAY ==
--- NOTE | 2020-08-10 10:15 | DI.RAD_ITS ---
EXAM: XR LUMBAR SPINE AP, LAT CLINICAL HISTORY: eval lumbar spine, LLE weakness. TECHNIQUE: 2D digital imaging was performed. COMPARISON: CR,XR XR CHEST 2V PA LATERAL from 07/07/2019 FINDINGS: The vertebral bodies and disc spaces are well maintained. No acute fractures or subluxations are pre sent. Mild degenerative changes are present throughout the lumbar spine including facet arthropathy in the lower lumbar spine. There is a mild left convex curvature of the lumbar spine. IMPRESSION: Mild degenerative changes seen in the lumbar spine. If there are radicular concerns an MRI may be co nsidered for further evaluation. DATA REPOSITORY: RADIATION DOSE DELIVERED:
== END 2020-08-10 11:42 ==
PROVIDERS: Visit Provider Student in an Organized Health Care Education/Training Program
DX: M47.816 Spondylosis without myelopathy or radiculopathy, lumbar region (principal); M76.892 Other specified enthesopathies of left lower limb, excluding foot; M54.16 Radiculopathy, lumbar region; I10 Essential (primary) hypertension
CPT/HCPCS: 99213; 72100

== ENCOUNTER 2020-08-20 01:14 | Outpatient (CLI) | payer MEDICARE, SELFPAY ==
--- NOTE | 2020-08-20 06:30 | DI.MRI_ITS ---
EXAM: MR LUMBAR SPINE WO CLINICAL HISTORY: pain,LUMBAR RADICULOPATHY,M54.16. TECHNIQUE: Multiplanar multisequence MRI of the Lumbar spine was performed. COMPARISON: CR XR LUMBAR SPINE AP, LAT from 08/10/2020 FINDINGS: There is anatomic variation here with 6 non rib-bearing vertebrae. Twelfth ribs will be considered r udimentary. There is partial sacralization of L5 segment at the right transverse process level seen on the recent plain films. Conus medullaris is at normal level. There is no evidence of conus mass nor subjacent clumping of in trathecal nerve roots to suggest arachnoiditis. The distal thecal sac appears unremarkable.There is no evidence of Tarlov intrasacral cysts nor other significant findings within the sacral canal Bones:There are no fractures nor ominous osseous lesions in the lumbar vertebral bodies and visualize d sacrum. Benign-appearing intraosseous hemangiomas are noted in L5, L3, T12 vertebral bodies. With respect to the individual levels... T12-L1: Unremarkable L1-2: Normal disc height and signal. No disc herniation nor central canal stenosis.No foraminal steno sis L2-3: Normal disc height. Mild posterolateral right annular bulging but without a prominent disc radha iation. No central canal stenosis.No foraminal stenosis.No facet arthropathy. L3-4: Normal disc height. Mild symmetrical annular bulging. This flattens the anterior thecal sac. There is mild central canal stenosis due to the annular bulging and short AP dimensions the pedicles .No foraminal stenosis.No facet arthropathy or ligamentum flavum hypertrophy. L4-5: Normal disc height and signal. Mild symmetrical annular bulging without a dominant disc hernia tion. There is mild-moderate central canal stenosis due to short AP dimensions the pedicles, the sym metrical annular bulging and degenerative changes in the facet joints, more so on the left than the r ight. There is no prominent ligamentum flavum hypertrophy. L5-S1: Normal disc height and signal. No disc herniation or canal stenosis. No foraminal stenosis. Soft tissues: paraspinal soft tissues appear unremarkable. IMPRESSION: 1. Mild spinal canal stenosis L3-4 and L4-5 levels due to which symmetrical broad annular bulging, sh ort AP dimensions of the pedicles, as well as some degenerative changes in the facet joints as descri bed above. There is no dominant focal disc herniation and there is no severe central canal stenosis nor significant foraminal stenosis in the lumbosacral spinal column. 2. There are benign intraosseous hemangioma is noted in multiple vertebral bodies. No ominous osseou s lesions. 3. Please note that there is variant anatomy here. There are 6 non rib bearing lumbar vertebrae whic h implies transitional variant anatomy. If clinically indicated plain films thoracic and lumbar spin es can be performed for accurate counting. This would be important if this patient is ever to be a s urgical candidate. This would avoid operating on the wrong level. DATA REPOSITORY:
== END 2020-08-20 01:34 ==
PROVIDERS: Visit Provider Student in an Organized Health Care Education/Training Program
DX: M48.061 Spinal stenosis, lumbar region without neurogenic claudication (principal); D18.09 Hemangioma of other sites; Q76.49 Other congenital malformations of spine, not associated with scoliosis; M54.16 Radiculopathy, lumbar region
CPT/HCPCS: 72148

== ENCOUNTER 2020-09-11 14:36 | Emergency (ER) | payer MEDICARE, SELFPAY ==
[2020-09-11] VITALS (17 sets, daily range): BP systolic 149–153; BP diastolic 83–85; PULSE 89–118; RESP 14–25; TEMP 36.6; O2SAT 95–98
--- NOTE | 2020-09-11 14:30 | RT.EKG_ITS ---
APPROVED REPORT Exam: Resting ECG Patient Location: E HR:104 bpm ECG Measurements Heart Rate 104 AXIS MN 167 P 56 QRSd 85 QRS 30 QT 320 T -2 QTc 422 Conclusion Sinus tachycardia...rate> 99 Physician: Rate 104, sinus tachycardia, no significant ST elevations or depressions, no STEMI, there is a Q wave and inverted T wave in lead III, however review of prior EKGs demonstrated that this was present at 06/2019. No changes otherwise.
--- NOTE | 2020-09-11 14:55 | ED.GENADUL_ITS ---
Discharge Plan Disposition Patient Disposition: HOME Condition: Good Discharge Details Clinical Impression: Heart palpitations Primary Care Provider: Stephanie Hernández ED Provider: Alo Keenan Home Meds and New Rx's Prescriptions: Continued Shingrix (PF) 50 mcg/0.5 mL suspension for reconstitution 0.5 ml IM ONCE Qty: 1 RF: 0 citalopram 20 mg tablet 30 mg PO DAILY Qty: 135 RF: 4 hydrochlorothiazide 12.5 mg capsule 12.5 mg PO DAILY Qty: 90 RF: 4 lisinopril 20 mg tablet 20 mg PO DAILY Qty: 90 RF: 4 albuterol sulfate 90 mcg/actuation HFA aerosol inhaler 2 puff IH Q6H PRNRF: 0 aspirin [Ecotrin Low Strength] 81 MG tablet,delayed release (DR/EC) 81 mg PO DAILY RF: 0 promethazine 25 mg tablet 25 mg PO Q12H PRN (Reason: nausea and vomiting) Qty: 30 RF: 0 elderberry fruit 200 mg Capsule 200 mg PO DAILY RF: 0 Advil PM 200-38 mg Tablet 1 cap PO QHS PRNRF: 0 Discharge Instructions Instructions: Heart Palpitations (ED) Additional Instructions: At this time your work-up showed no significant abnormalities. Your electrolytes and heart function are normal at this time. Thyroid function is also normal. I suspect you are having intermittent episodes of supraventricular tachycardia. Please keep the monitor on as directed for further evaluation of this. Please follow-up closely with your family doctor this week for reassessment. Please drink plenty of fluids at home, avoid any significant caffeine intake. If you notice any worsening of your symptoms, or any new symptoms such as vomiting, diarrhea, fever, chills, shortness of breath, chest pain, numbness, weakness, or fainting , please return immediately to the emergency department for reevaluation. Please follow up with your primary care provider as soon as possible for reassessment and reevaluation. As always, it was a pleasure participating in your medical care today. Referrals: Stephanie Hernández, [employer] [Primary Care Provider] - Medical Decision Making 70-year-old female with a past medical history of hypertension, anxiety, obesity, presents today for evaluation of palpitations. Patient states that for the last 3 years she has had intermittent palpitations, usually they just last for a moment or 2, and then go away on their own. Before today the most recent time she had palpitations as 3 months ago. She states she has not mentioned this to her family doctor. Patient states that today though at 10 AM she began having palpitations, notably more prominent than normal. They would come and go but it was certainly more noticeable than she usually is. This. She denies any significant chest pain, chest tightness, arm neck or shoulder pain. She denies any significant shortness of breath or exertional dyspnea. She did feel like she needed to take a deep breath whenever these episodes came on today though. Denies PE risk factors such as recent long car rides, immobilization, recent surgery, prior history of DVT or PE, family history of PE or DVT, morbid obesity, exogenous estrogen and smoking, hemoptysis, history of cancer. She has not seen a nail mill worker. She denies any previous cardiac evaluation. Complaints at this time. No other modifying factors. She denies any new medications, change in medications, nausea vomiting or diarrhea. She denies any history of cardiac disease. Physical exam is unremarkable, signs and symptoms at this time appearing consistent with ACS, symptoms appear inconsistent for PE, but are concerning for thyroid disease, dehydration, or intermittent SVT. We will rehydrate, evaluate for significant abnormalities, monitor closely and reassess. With no chest pain or shortness of breath and no notable risk factors for PE I see no indication for emergent imaging currently. 7 PM Laboratory work-up is returned unremarkable, proBNP negative, no suggestion of significant fluid overload, electrolytes stable, bilirubin 1.3, however she remains chronically elevated. Delta troponin and delta EKG unchanged. TSH normal. No palpitations or elevated heart rate here in the ED while on the monitor. Will give Holter monitor for home use. Recommend close follow-up with PCP. No indication for overnight admission at this time as she remains notably hemodynamically stable, no significant evidence of acute life-threatening etiology on current exam or after work-up. Discussed red flags which to return. I have extensively reviewed the treatment plan and discharge instructions with the patient. I have addressed all patient concerns at this time. The patient was made aware of what symptoms to monitor for that would warrant a return to the emergency department. Discussed the plan with the patient, they demonstrate verbal understanding and agreement with our assessment and plan at this time. EKG 14: 44 Rate 104, sinus tachycardia, no significant ST elevations or depressions, no STEMI, there is a Q wave and inverted T wave in lead III, however review of prior EKGs demonstrated that this was present at 06/2019. No changes otherwise. HPI General Date/Time Provider Initiated Documentation: 09/11/20 14:37 . HPI Narrative: 70-year-old female with a past medical history of hypertension, anxiety, obesity, presents today for evaluation of palpitations. Patient states that for the last 3 years she has had intermittent palpitations, usually they just last for a moment or 2, and then go away on their own. Before today the most recent time she had palpitations as 3 months ago. She states she has not mentioned this to her family doctor. Patient states that today though at 10 AM she began having palpitations, notably more prominent than normal. They would come and go but it was certainly more noticeable than she usually is. This. She denies any significant chest pain, chest tightness, arm neck or shoulder pain. She denies any significant shortness of breath or exertional dyspnea. She did feel like she needed to take a deep breath whenever these episodes came on today though. Denies PE risk factors such as recent long car rides, immobilization, recent surgery, prior history of DVT or PE, family history of PE or DVT, morbid obesity, exogenous estrogen and smoking, hemoptysis, history of cancer. She has not seen a nail mill worker. She denies any previous cardiac evaluation. Complaints at this time. No other modifying factors. She denies any new medications, change in medications, nausea vomiting or diarrhea. She denies any history of cardiac disease. Related Data Home Medications Medication Instructions Recorded Confirmed aspirin [Ecotrin Low Strength] 81 mg PO DAILY tab-cap 01/28/13 09/11/20 Advil PM 1 cap PO QHS PRN 12/19/18 09/11/20 promethazine 25 mg tablet 25 mg PO Q12H PRN #30 tab 07/04/19 09/11/20 albuterol sulfate 90 mcg/actuation 2 puff IH Q6H PRN 07/16/19 09/11/20 aerosol inhaler citalopram 20 mg tablet 30 mg PO DAILY #135 tab-cap 06/04/20 09/11/20 hydrochlorothiazide 12.5 mg capsule 12.5 mg PO DAILY #90 cap 06/04/20 09/11/20 lisinopril 20 mg tablet 20 mg PO DAILY #90 tab 06/04/20 09/11/20 varicella-zoster glycoE [id number] 0.5 ml IM ONCE #1 ea 06/04/20 09/11/20 adj(PF) 50 mcg/0.5 mL IM susp, kit elderberry fruit 200 mg PO DAILY 09/11/20 09/11/20 Previous Rx's Medication Instructions Recorded promethazine 25 mg tablet 25 mg PO Q12H PRN #30 tab 07/04/19 citalopram 20 mg tablet 30 mg PO DAILY #135 tab-cap 06/04/20 hydrochlorothiazide 12.5 mg capsule 12.5 mg PO DAILY #90 cap 06/04/20 lisinopril 20 mg tablet 20 mg PO DAILY #90 tab 06/04/20 varicella-zoster glycoE vacc-[id number] 0.5 ml IM ONCE #1 ea 06/04/20 adj(PF) 50 mcg/0.5 mL IM susp, kit Allergies Allergy/AdvReac Type Severity Reaction Status Date / Time Penicillins Allergy Intermediate HIVES Verified 09/11/20 14:46 prochlorperazine edisylate AdvReac Intermediate DYSTONIA Verified 09/11/20 14:46 [From Compazine] General Stated Complaint: Palpitatns BRAN: 2 Review of Systems All systems reviewed & are unremarkable except as noted in HPI and below PFSH Medical History Ankle fracture (06/03/14) right, ORIF 01/01 Anxiety Cerebral meningioma Benign 2003 Chronic pain of left knee (10/05/15) Collar bone fracture Depressive disorder anxiety Encounter for annual physical exam Foot pain, bilateral (03/05/15) Gastritis (08/09/13) 2008 Walko, EGD, bile gastritis (2009 GI eval at [facility], visceral hypersensitivity) History of gastroesophageal reflux (GERD) History of postoperative nausea and vomiting Hyperbilirubinemia GILBERT'S DISEASE Hypertension Iliotibial band syndrome, left leg Increased body mass index (BMI) Irritable colon Lymphedema (10/03/17) right axilla Migraine FOLLOWED BY DR AMITA MONTEMAYOR, [facility] Reports no longer experiences migraines Obesity Pancreatitis Pneumonia RUQ fullness Trimalleolar fracture (05/02/14) Surgical History Appendectomy section 1973,1976 Cholecystectomy (~1976) Colonoscopy - IV Sedation (~2004) History of surgery a. Cholecystectomy. b. . c. Brain surgery. Ligation of fallopian tube (~1976) PROCEDURES CRANIOTOMY, 08/24 FRONTAL TEMPORAL CRANIOTOMY FOR RESECTION OF MENINGIOMA EXPLORATORY LAPAROTOMY ENDOSC RETRO CHOLANGIOPA Repair of R ankle Fx 2013;RIGHT COLLORBONE REPAIR Family History Mother , age 47 Depression Father , age 84 Bladder cancer Sister Bladder cancer Sister Stroke Sister Primary fibromyalgia syndrome Brother Epilepsy Mental retardation Brother , age 70 Liver cancer Maternal Grandfather Heart disease Paternal Grandfather Cancer Maternal Grandmother Stroke Paternal Grandmother No problems noted. Daughter Wilms' tumor Daughter Depression Daughter Depression Social History Smoking/Tobacco Use Status: Never Second Hand Exposure: No Smoking risk assessment performed?: Yes Alcohol Intake: never Drug use: Never Substance use type: does not use Counseling given: No Counseling provided: none Caregiver/Support person: No Household members: spouse Housing: house Communication Needs: None Do you need help understanding health information?: Rarely Pets and animals: No Sexually active: No Do you think of yourself as: straight/heterosexual Current gender identity: female What is your relationship status?: How often do you talk on the phone with friends or family?: twice per week How often do you get together with friends or relatives?: never How often do you attend confucianism or gnosticism services?: decline to answer Do you belong to any clubs or organized social groups?: no Panel score (0-1 are the most socially isolated patients): 1 What type of physical activity do you participate in: other Details: Senior Exercise program Duration: 30-45 minutes/day Frequency: 5-6 times per week Laxmi/Scientology: [employer] Special laxmi needs: No Seatbelt use: always Drive intox or ride w/intox stud driver: No Do you feel safe at home: Yes Do you feel safe in your relationship?: Yes Victim of physical abuse: No Victim of emotional abuse: No Victim of sexual abuse: No Would you like helpful sources: No Female Reproductive History Menstrual Menopause type: natural History History 3 Para 3 Hx # Term Pregnancies Multiple births Hx # Pregnancies Ectopic pregnancies AB induced Hx Number of Living Children AB spontaneous Exam Narrative Exam Narrative: 1.Const: Well-nourished, Well-developed, appearing stated age 2.Eyes: PERRL, no conjunctival injection, and symmetrical lids. 3.ENT: Atraumatic external nose and ears. Moist MM. Neck: Symmetric, trachea midline, No thyromegaly. 4.CVS: +S1/S2, No murmurs or gallops. Peripheral pulses 2+ and equal in all extremities. Brisk capillary refill in all extremities. 5.RESP: Unlabored respiratory effort. Clear to auscultation bilaterally. No wheezes rales or rhonchi 6.GI: Soft, Nontender/Nondistended, No hepatosplenomegaly. No guarding or rebound. 7.MSK: Normocephalic/Atraumatic, Extremities w/o deformity or ttp No cyanosis or clubbing, Normal movement of all extremities 8.Skin: Warm, Dry. No rashes or lesions. 9.Neuro: medical care evaluation specialist II-XII grossly intact. Sensation grossly intact, no focal neurologic deficits. 10.Psych: (AAO) x3. Appropriate mood and affect Course Vital Signs Vital signs: Vital Signs Temperature 36.6 C 09/11/20 14:40 Pulse 118 H 09/11/20 14:40 Respiratory Rate 09/11/20 14:40 Blood Pressure 153/85 H 09/11/20 14:40 Pulse Oximetry 97 09/11/20 14:40 Temperature 36.6 C 09/11/20 14:40 Temperature Source Skin 09/11/20 14:40 Pulse 118 H 09/11/20 14:40 Respiratory Rate 09/11/20 14:40 Respiratory Effort Non-Labored 09/11/20 14:54 Blood Pressure 153/85 H 09/11/20 14:40 Blood Pressure Position Supine 09/11/20 14:40 Pulse Oximetry 97 09/11/20 14:40 Oxygen Delivery Method Room Air 09/11/20 14:40 Oxygen Flow Rate 0 09/11/20 14:40 Pain Level 0 09/11/20 14:40
[2020-09-11 14:58] LABS: Abs Immature Grans 0.06 10^3/uL (0.0-0.06); Absolute Basophil Count 0.06 10^3/uL (0.0-0.2); Absolute Eosinophil Count 0.22 10^3/uL (0.0-0.7); Absolute Lymphocyte Count 2.38 10^3/uL (1.2-3.4); Absolute Neutrophil Count 7.63 10^3/uL (1.2-6.7); Basophils % 0.5; Eosinophils % 1.9; HCT 43.7 % (36.0-46.0); HGB 14.7 g/dL (11.2-15.7); Immature Grans % 0.5; MCH 29.1 pg (27.0-33.0); MCHC 33.6 % (32.0-36.0); MCV 86.4 fL (80-95); MPV 10.4 fL (8.0-11.0); Monocytes % 8.8; Neutrophils % 67.3; Nucleated RBC 0 %; Platelet Count 281 10^3/uL (130-400); RBC 5.06 10^6/uL (3.93-5.22); RDW 16.7 % (11.7-14.6); RDW-SD 52.8 fL; WBC 11.34 10^3/uL (4.4-10.8)
[2020-09-11] MEDS: Normal Saline 1,000 ML 1000 ML IV (15:07)
[2020-09-11 15:15] LABS: PTT Activated 26.4 sec (21.0-27.5); Prothrombin Time 10.2 sec (9.3-11.0)
[2020-09-11 15:18] LABS: Troponin I < 0.05 ng/mL (<0.06)
[2020-09-11 15:44] LABS: ALT 32 U/L (14-59); AST 21 U/L (15-37); Albumin 4.1 g/dL (3.4-5.0); Alkaline Phosphatase 73 U/L (46-116); Anion Gap 8.1 mmol/L (3-11); BUN 16 mg/dL (7-18); Bilirubin, Total 1.3 mg/dL (0.2-1.0); CO2 27.9 mmol/L (21.0-32.0); CREATININE 0.85 mg/dL (0.55-1.02); Calcium 8.7 mg/dL (8.5-10.1); Chloride 104 mmol/L (98-107); Glucose 145 mg/dL (74-106); NT-proBNP 263 pg/mL (<300); Potassium 3.4 mmol/L (3.5-5.1); Sodium 140 mmol/L (136-145); TSH (W/Ref FT4) 1.95 uIU/mL (0.36-3.74); Total Protein 7.9 g/dL (6.4-8.2)
--- NOTE | 2020-09-11 17:30 | RT.EKG_ITS ---
APPROVED REPORT Exam: Resting ECG Patient Location: E HR:80 bpm ECG Measurements Heart Rate 80 AXIS [place] 144 P 38 QRSd 89 QRS 35 QT 350 T 10 QTc 405 Conclusion Sinus rhythm...normal P axis, V-rate 60- 99 Low voltage, precordial leads...precordial leads <1.0mV Physician: unchanged from prior ekg today
[2020-09-11 18:10] LABS: Troponin I < 0.05 ng/mL (<0.06)
--- NOTE | 2020-09-11 18:45 | NUR.NOTE ---
monitor on, placed by RT
== END 2020-09-11 18:45 | disposition home or self-care (01) ==
PROVIDERS: Emergency Provider Student in an Organized Health Care Education/Training Program
DX: R00.2 Palpitations (principal); I10 Essential (primary) hypertension
CPT/HCPCS: 36415; 80053; 93005; 96360; 99284; 83735; 83880; 84443; 84484; 85025; 85610; 85730; 93010; 93225; 99285

== ENCOUNTER 2020-09-11 16:01 | Outpatient (RCR) | payer MEDICARE, SELFPAY ==
--- NOTE | 2020-09-11 16:30 | HOLTER_ITS ---
APPROVED REPORT Exam Type: HOLTER MONITOR APPLICATION Reason for Test: palpitatons Patient Location: O Conclusion This was a 48-hour Holter monitor ordered for palpitations Rhythm throughout was sinus. Average heart rate was 68, minimum 54 and maximum 118 There were very rare ventricular ectopic beats. There were rare atrial premature beats. There is on e 6 beat atrial run There was no atrial fibrillation, no pauses greater than 3 seconds, no high-grade AV block No patient symptoms were reported
== END 2020-09-20 23:59 | disposition home or self-care (01) ==
LOC: RT 16:01
PROVIDERS: Visit Provider Student in an Organized Health Care Education/Training Program
DX: R00.2 Palpitations (principal); I49.1 Atrial premature depolarization
CPT/HCPCS: 93227; 93225; 93226

== ENCOUNTER → 2021-05-19 07:51 | Outpatient (BNVA) | payer MEDICARE, SELFPAY | DX: M70.62 Trochanteric bursitis, left hip (principal) | CPT/HCPCS: 20610; 99213; J1040 ==

== ENCOUNTER 2021-06-10 02:40 | Outpatient (CLI) | payer MEDICARE, SELFPAY ==
[2021-06-10 11:10] LABS: ALT 27 U/L (14-59); AST 16 U/L (15-37); Alkaline Phosphatase 66 U/L (46-116); Anion Gap 8.9 mmol/L (3-11); BUN 16 mg/dL (7-18); Bilirubin, Total 1.6 mg/dL (0.2-1.0); CO2 30.1 mmol/L (21.0-32.0); CREATININE 0.7 mg/dL (0.55-1.02); Calcium 8.8 mg/dL (8.5-10.1); Calculated LDL 120 mg/dL (<100); Chloride 103 mmol/L (98-107); Cholesterol 205 mg/dL (<200); Glucose 104 mg/dL (74-106); HDL Cholesterol 45 mg/dL (40-60); Potassium 4.4 mmol/L (3.5-5.1); Sodium 142 mmol/L (136-145); Total Protein 7.2 g/dL (6.4-8.2); Triglyceride 204 mg/dL (<150)
== END 2021-06-10 02:41 | disposition home or self-care (01) ==
LOC: LBO 02:40
DX: E78.5 Hyperlipidemia, unspecified (principal); I10 Essential (primary) hypertension; K58.9 Irritable bowel syndrome, unspecified
CPT/HCPCS: 36415; 80053; 80061

== ENCOUNTER 2021-07-14 01:47 | Outpatient (CLI) | payer MEDICARE, SELFPAY ==
--- NOTE | 2021-07-14 06:45 | DI.MAMMO_ITS ---
Exam(s) MAMMO SCREENING EXAM: MAMMO SCREENING CLINICAL HISTORY: screening,Z12.39 TECHNIQUE: Mammograms were interpreted according to the usual protocol including computer analysis w [employer] CAD system, tomosynthesis and C-view imaging. COMPARISON: FINDINGS: The breasts are heterogeneously dense. No dominant mass or clumped microcalcification is identified in either breast. The current examination is compared with previous examinations including June 2020 and there has been no gross interval change in appearance in comparison with the prior studies. IMPRESSION: No specific evidence of malignancy at this time. Routine screening examinations are suggested at yea rly intervals due to the family history of breast carcinoma. BI-RADS Category 1 - Negative Breast Density - Category C - Heterogeneously dense
== END 2021-07-14 02:07 ==
DX: Z12.31 Encounter for screening mammogram for malignant neoplasm of breast (principal); R92.8 Other abnormal and inconclusive findings on diagnostic imaging of breast
CPT/HCPCS: 77063; 77067

== ENCOUNTER 2021-08-23 21:14 | Outpatient (REF) | payer MEDICARE, SELFPAY ==
[2021-08-23 21:50] LABS: Bilirubin Negative (Negative); Blood Negative (Negative); Clarity Sl Cloudy (Clear); Glucose Negative (Negative); Ketones Negative (Negative); Leukocyte Esterase Negative (Negative); Nitrite Negative (Negative); Specific Gravity 1.025 (1.005-1.025); Urobilinogen 0.2 EU/dL (Up TO 0.2)
== END 2021-08-23 21:15 | disposition home or self-care (01) ==
LOC: NCHCN 21:14
DX: M54.50 Low back pain, unspecified (principal)
CPT/HCPCS: 81003

== ENCOUNTER 2021-08-25 04:01 | Outpatient (CLI) | payer MEDICARE, SELFPAY ==
[2021-08-25 13:48] LABS: HCT 40.6 % (36.0-46.0); HGB 13.4 g/dL (11.2-15.7); MCH 28.5 pg (27.0-33.0); MCV 86.2 fL (80-95); MPV 11.4 fL (8.0-11.0); Platelet Count 332 10^3/uL (130-400); RBC 4.71 10^6/uL (3.93-5.22); RDW 16.7 % (11.7-14.6); RDW-SD 53.1 fL; WBC 10.01 10^3/uL (4.4-10.8)
[2021-08-25 14:57] LABS: Iron 72 ug/dL (50-170)
[2021-08-25 15:11] LABS: Ferritin 249 ng/mL (8-252)
== END 2021-08-25 04:02 | disposition home or self-care (01) ==
LOC: LBO 04:01
DX: D50.9 Iron deficiency anemia, unspecified (principal); R19.8 Other specified symptoms and signs involving the digestive system and abdomen; R53.83 Other fatigue
CPT/HCPCS: 36415; 85027; 82728; 83540

== ENCOUNTER → 2021-11-22 01:26 | Outpatient (CLI) | payer MEDICARE, SELFPAY ==
--- NOTE | 2021-11-22 10:31 | DI.RAD_ITS ---
Exam(s) XR CHEST 2V PA LATERAL EXAM: XR CHEST 2V PA LATERAL CLINICAL HISTORY: dyspnea, cough x 6 wkssob, r06.02. TECHNIQUE: 2D digital imaging was performed. COMPARISON: CR RIGHT CLAVICLE LIMITED 1 VIEW from 12/20/2013 CR RIGHT CLAVICLE from 12/20/2013 CR RIGHT CLAVICLE LIMITED 1 VIEW from 01/31/2014 CR LEFT CLAVICLE LTD from 02/28/2014 FINDINGS: 2 views: Heart size is normal. The mediastinum is not widened. Three small nodules in the left upper lobe are unchanged from 2019 and most probably calcified granul omas. There also small similar appearing nodules towards both lung bases which are probably also gra nulomas. No pleural effusions. No pulmonary edema. No pneumothorax. Slight deformity of the midsh aft of the right clavicle is healed fracture site. IMPRESSION: No acute pulmonary findings.Multiple calcified granulomas evident. DATA REPOSITORY: RADIATION DOSE DELIVERED:
== END ==
PROVIDERS: Visit Provider Family Medicine
DX: R06.02 Shortness of breath (principal); R06.09 Other forms of dyspnea; R91.8 Other nonspecific abnormal finding of lung field
CPT/HCPCS: 71046

== ENCOUNTER 2022-06-22 03:56 | Outpatient (CLI) | payer MEDICARE, SELFPAY ==
[2022-06-22 10:10] LABS: ALT 29 U/L (14-59); AST 22 U/L (15-37); Albumin 3.9 g/dL (3.4-5.0); Alkaline Phosphatase 67 U/L (46-116); BUN 15 mg/dL (7-18); Bilirubin, Total 1.9 mg/dL (0.2-1.0); CREATININE 0.7 mg/dL (0.55-1.02); Calcium 8.9 mg/dL (8.5-10.1); Calculated LDL 93 mg/dL (<100); Chloride 104 mmol/L (98-107); Cholesterol 186 mg/dL (<200); Estimated GFR 92.41 (mL/min/1.73m2); Glucose 99 mg/dL (74-106); HDL Cholesterol 47 mg/dL (40-60); Potassium 3.8 mmol/L (3.5-5.1); Sodium 141 mmol/L (136-145); Total Protein 7.8 g/dL (6.4-8.2); Triglyceride 233 mg/dL (<150)
== END 2022-06-22 03:57 | disposition home or self-care (01) ==
LOC: LBO 03:59
PROVIDERS: PCP Nurse Practitioner Family
DX: E78.5 Hyperlipidemia, unspecified (principal); I10 Essential (primary) hypertension
CPT/HCPCS: 36415; 80053; 80061

== ENCOUNTER → 2022-07-27 02:26 | Outpatient (CLI) | payer MEDICARE, SELFPAY ==
--- NOTE | 2022-07-27 08:00 | DI.MAMMO_ITS ---
Exam(s) MAMMO SCREENING EXAM: MAMMO SCREENING CLINICAL HISTORY: screening,z12.39 TECHNIQUE: Mammograms were interpreted according to the usual protocol including computer analysis w [facility] CAD system, tomosynthesis and C-view imaging. COMPARISON: FINDINGS: The breasts are heterogeneously dense. No dominant mass or clumped microcalcification is identified in either breast. The current examination is compared with previous examinations including June 2021 and there has been no gross interval change in appearance in comparison with the prior studies. IMPRESSION: No specific evidence of malignancy at this time. Routine screening examinations are suggested at yea rly intervals in this age group according to the ACS ACR guidelines. BI-RADS Category 1 - Negative Breast Density - Category C - Heterogeneously dense
== END ==
PROVIDERS: PCP Nurse Practitioner Family; Visit Provider Nurse Practitioner Family
DX: Z12.31 Encounter for screening mammogram for malignant neoplasm of breast (principal)
CPT/HCPCS: 77063; 77067

== ENCOUNTER 2022-08-19 10:02 | Outpatient (CLI) | payer MEDICARE, SELFPAY ==
[2022-08-19 13:26] LABS: ALT 26 U/L (14-59); AST 30 U/L (15-37); Albumin 4.1 g/dL (3.4-5.0); Alkaline Phosphatase 73 U/L (46-116); Anion Gap 6.8 mmol/L (3-11); BUN 12 mg/dL (7-18); Bilirubin, Total 1.7 mg/dL (0.2-1.0); CO2 30.2 mmol/L (21.0-32.0); CREATININE 0.7 mg/dL (0.55-1.02); Calcium 9.2 mg/dL (8.5-10.1); Chloride 102 mmol/L (98-107); Estimated GFR 92.41 (mL/min/1.73m2); Glucose 106 mg/dL (74-106); Potassium 4.2 mmol/L (3.5-5.1); Sodium 139 mmol/L (136-145); Total Protein 7.8 g/dL (6.4-8.2)
== END 2022-08-19 10:03 | disposition home or self-care (01) ==
LOC: LOS 10:03
PROVIDERS: PCP Nurse Practitioner Family; Visit Provider Nurse Practitioner Family
DX: E78.5 Hyperlipidemia, unspecified (principal)
CPT/HCPCS: 36415; 80053

== ENCOUNTER 2022-09-14 02:51 | Outpatient (CLI) | payer MEDICARE, SELFPAY ==
[2022-09-14 12:35] LABS: Abs Immature Grans 0.08 10^3/uL (0.0-0.06); Absolute Basophil Count 0.06 10^3/uL (0.0-0.2); Absolute Eosinophil Count 0.39 10^3/uL (0.0-0.7); Absolute Lymphocyte Count 1.54 10^3/uL (1.2-3.4); Absolute Monocyte Count 0.57 10^3/uL (0.1-0.8); Absolute Neutrophil Count 7.11 10^3/uL (1.2-6.7); Basophils % 0.6; HCT 39.7 % (36.0-46.0); HGB 13.1 g/dL (11.2-15.7); Immature Grans % 0.8; Lymphocytes % 15.8; MCH 28.7 pg (27.0-33.0); MCV 87 fL (80-95); Monocytes % 5.8; Platelet Count 260 10^3/uL (130-400); RBC 4.57 10^6/uL (3.93-5.22); RDW 17.2 % (11.7-14.6); RDW-SD 55.3 fL; WBC 9.75 10^3/uL (4.4-10.8)
[2022-09-14 12:47] LABS: ALT 25 U/L (14-59); AST 20 U/L (15-37); Albumin 3.9 g/dL (3.4-5.0); Alkaline Phosphatase 69 U/L (46-116); Amylase 29 U/L (25-115); Anion Gap 6.8 mmol/L (3-11); BUN 16 mg/dL (7-18); Bilirubin, Total 1.7 mg/dL (0.2-1.0); CO2 30.2 mmol/L (21.0-32.0); CREATININE 0.8 mg/dL (0.55-1.02); Chloride 104 mmol/L (98-107); Estimated GFR 78.72 (mL/min/1.73m2); Glucose 105 mg/dL (74-106); Lipase 81 U/L (73-393); Potassium 3.6 mmol/L (3.5-5.1); Sodium 141 mmol/L (136-145); Total Protein 7.7 g/dL (6.4-8.2)
== END 2022-09-14 02:52 | disposition home or self-care (01) ==
LOC: LOS 02:51
PROVIDERS: PCP Nurse Practitioner Family; Visit Provider Nurse Practitioner Family
DX: R10.10 Upper abdominal pain, unspecified (principal); R53.83 Other fatigue; E80.6 Other disorders of bilirubin metabolism; E78.5 Hyperlipidemia, unspecified; K58.9 Irritable bowel syndrome, unspecified
CPT/HCPCS: 36415; 80053; 83690; 82150; 85025

== ENCOUNTER 2022-11-09 12:36 | Outpatient (CLI) | payer MEDICARE, SELFPAY ==
--- NOTE | 2022-11-09 12:30 | DI.CT_ITS ---
Exam(s) CT ABDOMEN PELVIS W EXAM: CT ABDOMEN PELVIS W CLINICAL HISTORY: nausea, fullness, upper abd pain, R10.10 TECHNIQUE: Imaging Protocol: Axial computed tomography images with coronal and sagittal reformatted images were created and reviewed CONTRAST MATERIAL: Intravenous: Omnipaque 350 Contrast volume:100 mL Oral: Yes COMPARISON: CT ABD PELVIS WITH CONTRAST from 06/13/2011 FINDINGS: ABDOMEN: Lung Bases: There is a small hiatal hernia. There is a 3 mm nodule in the right lower lobe. There i s a 6 mm nodule in the medial posterior aspect of the right lower lobe. Calcified granuloma are seen in the lungs. Liver: Normal density. No measurable mass. Portal, Superior Mesenteric, and Splenic Veins: Unremarkable. Gallbladder and Biliary Tract: The gallbladder is not visualized. There is no biliary ductal dilatat ion. Pancreas: Normal density, no abnormal calcifications or inflammatory process. Spleen: Calcified granuloma are seen in the spleen. Adrenals: No masses seen. Kidneys: Normal size, contour and axis. No radiodense stones or obstructive uropathy. There are tiny hypodensities in the kidneys. They are too small for further characterization, but likely reflect sm all cysts. Abdominal Aorta: Abdominal portion non-dilated. Atherosclerosis. Bowel: No obstruction or bowel wall thickening. No evidence of appendicitis. Peritoneal Cavity: No ascites, collection or mesenteric inflammatory response. No free air. Lymph Nodes: Within normal limits. Bones: Within normal limits for the patient's age. Soft Tissues: Unremarkable. PELVIS: Bladder: Symmetric distention, no gross wall thickening. Reproductive Organs: Unremarkable as visualized. Lymph Nodes: Within normal limits. Bones: Within normal limits for the patient's age. IMPRESSION: 1. No acute abdominal or pelvic process. 2. Noncalcified pulmonary nodules in the right lower lobe. For high risk patients (history of smokin g or other risk factors), initial follow-up examination is recommended at 6-12 months and again at 18 -24 months. For low risk patients, initial follow-up at 6-12 months is recommended. (Tasha et al, 2017). Unexpected findings RADIATION DOSE DELIVERED: 1,208.19mGy.cm Total DLP DATA REPOSITORY: All CT scans at this facility are submitted to the National Radiology Data Registry (NRDR) Dose Index Registry (DIR) with the [employer] (ACR). RADIATION OPTIMIZATION: All CT scans at this facility use at least one of these dose optimization te chniques: automated exposure control; mA and/or kV adjustment per patient size (includes targeted exa ms where dose is matched to clinical indication); or iterative reconstruction.
[2022-11-09] MEDS: Barium Sulfate 2% W/V-Berry Smoothie 450 ML BTL 900 ML PO (13:17)
[2022-11-09 13:31] LABS: Anion Gap 6.5 mmol/L (3-11); BUN 14 mg/dL (7-18); CO2 27.5 mmol/L (21.0-32.0); CREATININE 0.9 mg/dL (0.55-1.02); Calcium 9.1 mg/dL (8.5-10.1); Chloride 102 mmol/L (98-107); Estimated GFR 68.35 (mL/min/1.73m2); Glucose 123 mg/dL (74-106); Potassium 3.8 mmol/L (3.5-5.1); Sodium 136 mmol/L (136-145)
[2022-11-09] MEDS: Omnipaque 350 MG/ML 100 ML BTL IJ (15:23)
[2022-11-09] MEDS: Normal Saline - Diluent 50 ML VIAL IJ (15:23)
== END 2022-11-09 12:56 ==
LOC: DI 12:38
PROVIDERS: PCP Nurse Practitioner Family; Visit Provider Nurse Practitioner Family
DX: R10.10 Upper abdominal pain, unspecified (principal); R11.0 Nausea; K44.9 Diaphragmatic hernia without obstruction or gangrene; R91.8 Other nonspecific abnormal finding of lung field
CPT/HCPCS: 80048; 74177; J3490

== ENCOUNTER 2023-01-17 15:50 | Emergency (ER) | payer MEDICARE, OTHER, SELFPAY ==
[2023-01-17 16:00] VITALS: BP 135/85; PULSE 70; RESP 18; TEMP 37.1; O2SAT 97
--- NOTE | 2023-01-17 16:15 | DI.RAD_ITS ---
Exam(s) XR ANKLE LT COMPLETE EXAM: XR ANKLE LT COMPLETE CLINICAL HISTORY: lateral ankle pain- fall. TECHNIQUE: 2D digital imaging was performed. COMPARISON: CR RIGHT ANKLE 2 VIEW from 03/28/2014 FINDINGS: 3 views No evidence of fracture or widening of the ankle mortise. Talar dome unremarkable. No obvious degen erative changes in the ankle and subtalar joints. Prominent inferior calcaneal spur noted. Bone density normal. No osseous lesions. IMPRESSION: No ankle fracture evident. DATA REPOSITORY: RADIATION DOSE DELIVERED:
--- NOTE | 2023-01-17 16:15 | DI.RAD_ITS ---
Exam(s) XR TIB/FIB LT EXAM: XR TIB/FIB LT CLINICAL HISTORY: fall mid fib pain. TECHNIQUE: 2D digital imaging was performed. COMPARISON: No exams were available for comparison FINDINGS: Two views: There is no oblique mildly displaced fracture in the proximal 3rd of the fibular diaphysis. Does not involve the head and neck of the fibula. No osseous lesions. No radiopaque foreign body. Proximal and distal tibia appear intact. No tibial plateau fracture. IMPRESSION: Upper fibular fracture as described above. DATA REPOSITORY: RADIATION DOSE DELIVERED:
--- NOTE | 2023-01-17 17:16 | DI.VRAD_ITS ---
PROCEDURE INFORMATION: Exam: XR Left Tibia and Fibula Exam date and time: 01/17/2023 4:58 PM Age: 72 years old Clinical indication: Pain; Ankle and lower leg; Left; Patient HX: Fall TECHNIQUE: Imaging protocol: Radiologic exam of the left tibia and fibula. Views: 2 views. COMPARISON: MR lower joint LT wo 12/10/2018 4:45 PM FINDINGS: Bones/joints: Obliquely oriented fracture of the proximal diametaphysis of the fibula. There is one cortical width of anterior and lateral displacement. No definite distal ankle fracture. The tibia is intact. Soft tissues: Unremarkable. IMPRESSION: Closed fracture proximal left fibula. Dictated and Authenticated by: Jaime Duarte MD. Ordering:JUDD Wahl MD
--- NOTE | 2023-01-17 17:17 | DI.VRAD_ITS ---
PROCEDURE INFORMATION: Exam: XR Left Ankle Exam date and time: 01/17/2023 4:59 PM Age: 72 years old Clinical indication: Ankle; Left; Patient HX: Pain, fall TECHNIQUE: Imaging protocol: Radiologic exam of the left ankle. Views: 3 or more views. Non-weightbearing AP, oblique and lateral images. COMPARISON: MR lower joint LT wo 12/10/2018 4:45 PM FINDINGS: Bones/joints: The ankle mortise is intact. Examination negative for fracture or dislocation. There is a plantar calcaneal spur. Soft tissues: Unremarkable. IMPRESSION: No fracture or dislocation involving the left ankle. Dictated and Authenticated by: Jaime Duarte MD. Ordering:JUDD Wahl MD
--- NOTE | 2023-01-17 17:41 | ED.GENADUL_ITS ---
Discharge Plan Disposition Patient Disposition: Home Discharge Details Clinical Impression: Fracture of fibula, proximal, Left ankle sprain Primary Care Provider: Joann Chandler ED Provider: Vish Quintanilla Home Meds and New Rx's Prescriptions: Continued melatonin 5 mg capsule 5 mg PO QPM cholecalciferol (vitamin D3) 50 mcg (2,000 unit) capsule 25 mcg PO DAILY Wilmont Saline 0.65 % aerosol,spray 1 spray intranasal QID PRN (Reason: dry nasal passages) Qty: 45 0RF L.acidoph,saliva-B.bif-S.therm [Acidophilus Probiotic Blend] 175 mg capsule 1 cap PO DAILY metoprolol tartrate 25 mg tablet 12.5 mg PO DAILY Qty: 45 3RF hydrochlorothiazide 25 mg tablet 25 mg PO DAILY Qty: 90 3RF citalopram 20 mg tablet 30 mg PO DAILY Qty: 135 4RF Rx Instructions: take 1.5 tabs every day (30mg) lisinopril 20 mg tablet 20 mg PO DAILY Qty: 90 4RF simvastatin 20 mg tablet 20 mg PO QHS Qty: 90 3RF nystatin 100,000 unit/gram powder 1 applic topical QID Qty: 60 0RF Rx Instructions: apply powder to abdomen and under right breast 4x per day. albuterol sulfate 90 mcg/actuation HFA aerosol inhaler 2 puff IH Q6H PRN (Reason: bronchospasm) Qty: 8.5 0RF ondansetron 4 mg tablet,disintegrating 4 mg PO Q6H PRN (Reason: nausea and vomiting) Qty: 30 0RF aspirin [Ecotrin Low Strength] 81 MG tablet,delayed release (DR/EC) 81 mg PO DAILY promethazine 25 mg tablet 25 mg PO Q12H PRN (Reason: nausea and vomiting) Qty: 30 0RF amlodipine 5 mg tablet 5 mg PO DAILY Qty: 90 4RF elderberry fruit 200 mg capsule 50 mg PO DAILY Discharge Instructions Instructions: Ankle Sprain (ED), Leg Fracture (ED) Additional Instructions: Please use walker and keep knee immobilizer and ankle stirrup on especially with any weightbearing and ambulatory activities. You may continue to use [id number] acetaminophen and use as directed on packaging not to exceed 3000 mg in a 24. You may apply ice to any areas of swelling or discomfort as well. If you develop any new or significant worsening of your symptoms return immediately to the emergency department for reassessment otherwise follow-up with orthopedics. Referrals: [facility] [Provider Group] (Please call the office tomorrow afternoon for arrangement of follow-up appointment.) Discharge Data Discharge Date/Time-TO BE ENTERED AT DEPARTURE: 01/17/23 18:38 Medical Decision Making Patient presenting to the emergency department for chief complaint of mechanical fall. She denies any other injury except for her left lower leg. She states pain from her proximal calf all the way through the lateral ankle with some medial pain as well. Physical exam shows sensory motor and circulation all intact to the distal foot, small abrasions but no lacerations. Mild discomfort with palpation of the medial and lateral malleolus with intact full range of motion and only noted slight discomfort. Patient does have noted tenderness to fibula mostly at the mid to proximal and. Patient does state that she is slightly weightbearing but discomfort with weightbearing activities. Given patient's age and complaint we will perform radiological imaging. Patient states she took Tylenol prior to arrival and has no further need for medication pending results. Reviewed radiological imaging and ankle imaging shows no worrisome findings for fracture or dislocation but patient does have a proximal fibula fracture with minimal displacement. Patient was placed on orthopedic follow-up list and placed in a ankle stirrup for suspected ankle sprain along with a knee immobilizer. I do not feel that patient is appropriate candidate for crutch use but patient was able to securely and safely ambulate with use of a walker. Patient to continue conservative management with [id number] pain medication and return to ER if needed pending Ortho follow-up. After discussion of diagnosis and plan of care patient has no further needs, questions, or concerns and states clear understanding to return to the emergency department for any worsening symptoms. This documentation was generated using [employer] dictation system, please disregard any oddities of phrase or misspellings. Imaging Data Radiologic Study: Imaging: X-Ray Radiologist's impression: Exam(s) XR TIB/FIB LT EXAM: XR TIB/FIB LT CLINICAL HISTORY: fall mid fib pain. TECHNIQUE: 2D digital imaging was performed. COMPARISON: No exams were available for comparison FINDINGS: Two views: There is no oblique mildly displaced fracture in the proximal 3rd of the fibular diaphysis. Does not involve the head and neck of the fibula. No osseous lesions. No radiopaque foreign body. Proximal and distal tibia appear intact. No tibial plateau fracture. IMPRESSION: Upper fibular fracture as described above. Radiologic Study #2: Imaging: X-Ray Radiologist's impression: Exam(s) XR ANKLE LT COMPLETE EXAM: XR ANKLE LT COMPLETE CLINICAL HISTORY: lateral ankle pain- fall. TECHNIQUE: 2D digital imaging was performed. COMPARISON: CR RIGHT ANKLE 2 VIEW from 03/28/2014 FINDINGS: 3 views No evidence of fracture or widening of the ankle mortise. Talar dome unremarkable. No obvious degenerative changes in the ankle and subtalar joints. Prominent inferior calcaneal spur noted. Bone density normal. No osseous lesions. IMPRESSION: No ankle fracture evident. HPI General Mode of arrival: wheelchair . Date/Time Provider Initiated Documentation: 01/17/23 16:05 . Limitations to Documentation: no limitations . Information obtained by: patient and RN notes reviewed . History of Present Illness 72 year old F presents to the emergency department with the chief complaint of Fall left ankle and leg pain, described as moderate, with intensity rated at 6. Quality is described as aching, and is localized to the lower extremity. Patient reports no radiation. Patient started experiencing this hour(s) (1) and it has been constant. Movement worsens symptoms . Patient notes no other symptoms.. Patient did receive the following treatments prior to arrival, other (Acetaminophen) Related Data Home Medications Medication Instructions Recorded Confirmed aspirin 81 mg tablet,delayed 81 mg PO DAILY 01/28/13 01/17/23 release (Ecotrin Low Strength) sodium chloride 0.65 % nasal spray 1 spray intranasal QID PRN dry 10/01/20 01/17/23 aerosol (Wilmont Saline) nasal passages #45 mL melatonin 5 mg capsule 5 mg PO QPM 12/20/21 01/17/23 L.acidophil,salivari-Bifido 1 cap PO DAILY 06/29/22 01/17/23 bifidum-Strep thermoph 175 mg capsule (Acidophilus Probiotic Blend) cholecalciferol (vitamin D3) 50 25 mcg PO DAILY 06/29/22 01/17/23 mcg (2,000 unit) capsule citalopram 20 mg tablet 30 mg PO DAILY #135 tab-caps 06/29/22 01/17/23 elderberry fruit 200 mg capsule 50 mg PO DAILY 06/29/22 01/17/23 hydrochlorothiazide 25 mg tablet 25 mg PO DAILY #90 tabs 06/29/22 01/17/23 lisinopril 20 mg tablet 20 mg PO DAILY hypertension #90 06/29/22 01/17/23 tabs metoprolol tartrate 25 mg tablet 12.5 mg PO DAILY #45 tabs 06/29/22 01/17/23 simvastatin 20 mg tablet 20 mg PO QHS #90 tabs 06/29/22 01/17/23 albuterol sulfate 90 mcg/actuation 2 puff inhalation Q6H PRN 08/19/22 01/17/23 aerosol inhaler bronchospasm #8.5 grams nystatin 100,000 unit/gram topical 1 applic topical QID rash #60 grams 08/19/22 01/17/23 powder promethazine 25 mg tablet 25 mg PO Q12H PRN nausea and 09/06/22 01/17/23 vomiting #30 tabs amlodipine 5 mg tablet 5 mg PO DAILY #90 tabs 09/20/22 01/17/23 ondansetron 4 mg disintegrating 4 mg PO Q6H PRN nausea and 11/09/22 01/17/23 tablet vomiting #30 tabs Previous Rx's Medication Instructions Recorded sodium chloride 0.65 % nasal spray 1 spray intranasal QID PRN dry 10/01/20 aerosol (Wilmont Saline) nasal passages #45 mL citalopram 20 mg tablet 30 mg PO DAILY #135 tab-caps 06/29/22 hydrochlorothiazide 25 mg tablet 25 mg PO DAILY #90 tabs 06/29/22 lisinopril 20 mg tablet 20 mg PO DAILY hypertension #90 06/29/22 tabs metoprolol tartrate 25 mg tablet 12.5 mg PO DAILY #45 tabs 06/29/22 simvastatin 20 mg tablet 20 mg PO QHS #90 tabs 06/29/22 albuterol sulfate 90 mcg/actuation 2 puff inhalation Q6H PRN 08/19/22 aerosol inhaler bronchospasm #8.5 grams nystatin 100,000 unit/gram topical 1 applic topical QID rash #60 grams 08/19/22 powder promethazine 25 mg tablet 25 mg PO Q12H PRN nausea and 09/06/22 vomiting #30 tabs amlodipine 5 mg tablet 5 mg PO DAILY #90 tabs 09/20/22 ondansetron 4 mg disintegrating 4 mg PO Q6H PRN nausea and 11/09/22 tablet vomiting #30 tabs Allergies Allergy/AdvReac Type Severity Reaction Status Date / Time Penicillins Allergy Intermediate HIVES Verified 01/17/23 16:04 prochlorperazine edisylate AdvReac Intermediate DYSTONIA Verified 01/17/23 16:04 [From Compazine] General Stated Complaint: Orthopedic BRAN: 4 Review of Systems Narrative: 6 systems reviewed and unremarkable except what is marked below. ENT Ears, Nose, Mouth, and Throat: Denies dizziness Cardiovascular Cardiovascular: Denies chest pain, Denies syncope and Denies dyspnea Respiratory Respiratory: Denies dyspnea Musculoskeletal Musculoskeletal: Reports as per HPI, Reports arthralgias, Reports joint swelling and Reports limited range of motion Neurologic Neurologic: Denies dizziness, Denies syncope and Denies localized weakness PFSH All Active Problems (Updated 01/17/23 @ 17:54 by Vish Quintanilla NP) Hypertension (Chronic) History of surgery (Chronic) a. Cholecystectomy. b. . c. Brain surgery. Lymphedema (Acute 10/03/17) right axilla Hyperbilirubinemia (Acute) GILBERT'S DISEASE Foot pain, bilateral (Acute 03/05/15) Depressive disorder (Chronic) anxiety Iliotibial band syndrome, left leg (Acute) Hyperlipidemia (Chronic 08/29/11) ACC/AHA Calc Risk = 22.2% based on 07/12 lipid Tendonitis involving left hip abductors (Acute) Lumbar radiculopathy, chronic (Acute) Fatigue (Acute) Obesity (BMI 35.0-39.9 without comorbidity) (Chronic) Irritable bowel syndrome (Chronic) Upper abdominal pain (Acute) Chronic nausea (Acute) Fracture of fibula, proximal (Acute) Left ankle sprain (Acute) Medical History Ankle fracture (06/03/14) right, ORIF 01/01 Anxiety Benign neoplasm of brain (07/20/03) Cerebral meningioma Benign 2003 Chronic pain of left knee (10/05/15) Collar bone fracture Diarrhea Gastritis (08/09/13) 2008 Walko, EGD, bile gastritis (2009 GI eval at [facility], visceral hypersensitivity) History of gastroesophageal reflux (GERD) History of postoperative nausea and vomiting Irritable colon Migraine FOLLOWED BY DR AMITA MONTEMAYOR, [facility] Reports no longer experiences migraines Migraine Good response to Topamax Obesity Pancreatitis Pneumonia Rhinitis, chronic RUQ fullness Trimalleolar fracture (12/20/13) Trochanteric bursitis of left hip Surgical History Appendectomy section 1973,1976 Cholecystectomy (~1976) Colonoscopy - IV Sedation (~2004) Ligation of fallopian tube (~1976) PROCEDURES CRANIOTOMY, 08/24 FRONTAL TEMPORAL CRANIOTOMY FOR RESECTION OF MENINGIOMA EXPLORATORY LAPAROTOMY ENDOSC RETRO CHOLANGIOPA Repair of R ankle Fx 2013;RIGHT COLLORBONE REPAIR Family History Mother , age 47 Depression Father , age 84 Bladder cancer Sister Bladder cancer Sister Stroke Sister Primary fibromyalgia syndrome Brother Epilepsy Mental retardation Brother , age 70 Liver cancer Maternal Grandfather Heart disease Paternal Grandfather Cancer Maternal Grandmother Stroke Paternal Grandmother No problems noted. Daughter Wilms' tumor Daughter Depression Daughter Depression Social History Smoking/Tobacco Use Status: Never Second Hand Exposure: No Smoking risk assessment performed?: Yes Alcohol Intake: never Drug use: Never Substance use type: does not use Counseling given: No Counseling provided: none Caregiver/Support person: No Household members: spouse Housing: house Communication Needs: None Do you need help understanding health information?: Rarely Pets and animals: No Sexually active: No Do you think of yourself as: straight/heterosexual Current gender identity: female What is your relationship status?: How often do you talk on the phone with friends or family?: three or more times per week How often do you get together with friends or relatives?: once per week How often do you attend scientology or muslim services?: decline to answer Do you belong to any clubs or organized social groups?: no Panel score (0-1 are the most socially isolated patients): 2 What type of physical activity do you participate in: aerobic and other Details: G[employer] for seniors Duration: 15-30 minutes/day Frequency: 3-4 times per week Laxmi/Adventism: Yarsani Special laxmi needs: No Seatbelt use: always Helmet use: No Drive intox or ride w/intox after school driver: No Do you feel safe at home: Yes Do you feel safe in your relationship?: Yes Victim of physical abuse: No Victim of emotional abuse: No Victim of sexual abuse: No Would you like helpful sources: No Female Reproductive History Menstrual Menopause type: natural History History 3 Para 3 Hx # Term Pregnancies Multiple births Hx # Pregnancies Ectopic pregnancies AB induced Hx Number of Living Children AB spontaneous Exam Const General: cooperative, no acute distress and not ill appearing Orientation: alert, awake and oriented x3 HENMT Mouth: moist mucous membranes Resp Effort & Inspection: normal respiratory effort, able to speak in complete sentences and no respiratory distress Cardio Rate: regular rate Rhythm: regular rhythm Pulses: normal peripheral pulses Skin Trauma: abrasion Neuro General: patient alert, patient awake, patient oriented x3, moves all extremities and no focal motor deficits Sensory Exam: no sensory deficits noted Extrem General: normal exam except as noted Left lower extremity: lower leg Details: tenderness Location: of the proximal fibula and of the midshaft fibula and ankle Details: tenderness Location: of the lateral malleolus and of the medial malleolus, swelling Details: laterally, normal ROM, abnormal ROM Details: pain with active ROM and abrasion (Lateral ankle); no ecchymosis Course Vital Signs Vital signs: Vital Signs Temperature 37.1 C 01/17/23 16:00 Pulse 70 01/17/23 16:00 Respiratory Rate 18 01/17/23 16:00 Blood Pressure 135/85 01/17/23 16:00 Pulse Oximetry 97 01/17/23 16:00 Temperature 37.1 C 01/17/23 16:00 Temperature Source Skin 01/17/23 16:00 Pulse 70 01/17/23 16:00 Respiratory Rate 18 01/17/23 16:00 Respiratory Effort Normal 01/17/23 16:04 Blood Pressure 135/85 01/17/23 16:00 Blood Pressure Position Sitting 01/17/23 16:00 Pulse Oximetry 97 01/17/23 16:00 Oxygen Delivery Method Room Air 01/17/23 16:00 Oxygen Flow Rate 0 01/17/23 16:00 Pain Level 0 01/17/23 16:00 Comment walking pain is an 8. 01/17/23 16:00
== END 2023-01-17 18:38 | disposition home or self-care (01) ==
PROVIDERS: Emergency Provider Nurse Practitioner Family; PCP Nurse Practitioner Family
DX: S82.832A Other fracture of upper and lower end of left fibula, initial encounter for closed fracture (principal); W19.XXXA Unspecified fall, initial encounter; S93.402A Sprain of unspecified ligament of left ankle, initial encounter
CPT/HCPCS: 29505; 29515; 99284; 73590; 73610; 99283

== ENCOUNTER 2023-02-02 14:07 | Outpatient (CLI) | payer MEDICARE, OTHER, SELFPAY ==
--- NOTE | 2023-02-02 13:15 | DI.RAD_ITS ---
Exam(s) XR TIB/FIB LT EXAM: XR TIB/FIB LT CLINICAL HISTORY: F/U FRACTURE. TECHNIQUE: 2D digital imaging was performed. COMPARISON: CR,XR XR TIB/FIB LT from 01/17/2023 FINDINGS: Two views Again noted is an oblique mildly displaced fracture in the proximal 3rd of the left fibula, unchanged . No further displacement. No obvious callus formation. No other fractures lower down the fibula n or in the tibia. Tibial plateau appears intact. IMPRESSION: Stable appearance of the oblique proximal fibular fracture. DATA REPOSITORY: RADIATION DOSE DELIVERED:
== END 2023-02-02 14:08 | disposition home or self-care (01) ==
LOC: DIORS 14:07
PROVIDERS: PCP Nurse Practitioner Family; Referring Provider Nurse Practitioner Family; Visit Provider Physician Assistant
DX: S82.839A Other fracture of upper and lower end of unspecified fibula, initial encounter for closed fracture (principal); S82.832A Other fracture of upper and lower end of left fibula, initial encounter for closed fracture; X58.XXXA Exposure to other specified factors, initial encounter
CPT/HCPCS: 99213; 73590

== ENCOUNTER 2023-03-02 11:23 | Outpatient (CLI) | payer MEDICARE, OTHER, SELFPAY ==
--- NOTE | 2023-03-02 10:15 | DI.RAD_ITS ---
Exam(s) XR TIB/FIB LT EXAM: XR TIB/FIB LT CLINICAL HISTORY: left proximal fibula fracture. TECHNIQUE: 2D digital imaging was performed. COMPARISON: CR XR TIB/FIB LT from 02/02/2023 FINDINGS: Two views Appearance of the oblique fracture site in proximal 3rd of the fibula exhibits mild callus formation but fracture line is still quite evident. There is no further displacement. No additional fractures evident. IMPRESSION: As above. DATA REPOSITORY: RADIATION DOSE DELIVERED:
== END 2023-03-02 11:24 | disposition home or self-care (01) ==
LOC: DIORS 11:23
PROVIDERS: PCP Nurse Practitioner Family; Referring Provider Nurse Practitioner Family; Visit Provider Physician Assistant
DX: S82.832D Other fracture of upper and lower end of left fibula, subsequent encounter for closed fracture with routine healing; X58.XXXD Exposure to other specified factors, subsequent encounter
CPT/HCPCS: 99213; 73590

== ENCOUNTER → 2023-07-25 00:46 | Outpatient (CLI) | payer MEDICARE, OTHER, SELFPAY ==
--- NOTE | 2023-07-25 09:13 | DI.CT_ITS ---
Exam(s) CT CHEST WO EXAM: CT CHEST WO CLINICAL HISTORY: re-eval pulmonary nodules,R91.8. TECHNIQUE: Imaging protocol: Axial computed tomography images were obtained and coronal and sagittal reformatted images were created and reviewed. CONTRAST MATERIAL: Noncontrast COMPARISON: CT CT ABDOMEN PELVIS W from 11/09/2022 FINDINGS: Pulmonary parenchyma: No consolidation. Multiple bilateral scattered calcified granulomata. Multiple bilateral tiny peripheral smoothly marginated nodules, consistent with noncalcified granulomas. The nodules mention on the prior exam are unchanged in size and appearance. The largest measures 6 mill imeters at the posterior right lung base. Emphysema: None. Tracheobronchial tree: No mucous plugging. No bronchiectasis . Interstitial changes: None. Pleura: No effusion or pneumothorax. Heart: The heart is mildly dilated. The coronary arteries show mild to moderate calcifications. Mi tral annular calcification. Aorta: Thoracic aorta non-dilated. Mildatherosclerotic changes. Lymph nodes: Calcified mediastinal and hilar lymph nodes consistent with prior granulomatous disease. Bones: Degenerative changes are seen. No evidence of compression fracture. Upper abdomen: Unremarkable. Soft tissues: Unremarkable. IMPRESSION: Small stable pulmonary nodules consistent with granulomas.. For multiple solid noncalcified nodules smaller than 6 mm in diameter, no routine follow-up is recomm ended (grade 2B; weak recommendation, moderate-quality evidence). (Lorraine et al., 2017) RADIATION DOSE DELIVERED: Total DLP Total DLP DATA REPOSITORY: All CT scans at this facility are submitted to the National Radiology Data Registry (NRDR) Dose Index Registry (DIR) with the [employer] (ACR). RADIATION OPTIMIZATION: All CT scans at this facility use at least one of these dose optimization te chniques: automated exposure control; mA and/or kV adjustment per patient size (includes targeted exa ms where dose is matched to clinical indication); or iterative reconstruction.
== END ==
PROVIDERS: PCP Nurse Practitioner Family; Visit Provider Nurse Practitioner Family
DX: R91.8 Other nonspecific abnormal finding of lung field (principal)
CPT/HCPCS: 71250

== ENCOUNTER 2023-07-25 16:20 | Outpatient (CLI) | payer MEDICARE, OTHER, SELFPAY ==
[2023-07-25 09:41] LABS: Anion Gap 6.4 mmol/L (3-11); BUN 15 mg/dL (7-18); CO2 30.6 mmol/L (21.0-32.0); CREATININE 0.8 mg/dL (0.55-1.02); Calcium 9.1 mg/dL (8.5-10.1); Chloride 102 mmol/L (98-107); Estimated GFR 78.24 (mL/min/1.73m2); Glucose 107 mg/dL (74-106); Potassium 3.7 mmol/L (3.5-5.1); Sodium 139 mmol/L (136-145)
[2023-07-26 10:51] LABS: Hepatitis C Ab w Rflx HCV PCR Negative (Negative)
== END 2023-07-25 16:21 | disposition home or self-care (01) ==
LOC: LBO 16:20
PROVIDERS: PCP Nurse Practitioner Family; Visit Provider Nurse Practitioner Family
DX: Z00.00 Encounter for general adult medical examination without abnormal findings (principal)
CPT/HCPCS: 36415; 80048; 86803

== ENCOUNTER 2023-08-28 05:21 | Outpatient (CLI) | payer MEDICARE, OTHER, SELFPAY ==
[2023-08-28 12:41] LABS: Abs Immature Grans 0.07 10^3/uL (0.0-0.06); Absolute Basophil Count 0.06 10^3/uL (0.0-0.2); Absolute Eosinophil Count 0.48 10^3/uL (0.0-0.7); Absolute Lymphocyte Count 1.64 10^3/uL (1.2-3.4); Absolute Monocyte Count 0.77 10^3/uL (0.1-0.8); Absolute Neutrophil Count 9.73 10^3/uL (1.2-6.7); Basophils % 0.5; Eosinophils % 3.8; HCT 41.6 % (36.0-46.0); HGB 13.6 g/dL (11.2-15.7); Immature Grans % 0.5; Lymphocytes % 12.9; MCH 27.9 pg (27.0-33.0); MCHC 32.7 % (32.0-36.0); MCV 85 fL (80-95); MPV 11.1 fL (8.0-11.0); Neutrophils % 76.3; Platelet Count 282 10^3/uL (130-400); RBC 4.88 10^6/uL (3.93-5.22); RDW 18.3 % (11.7-14.6); WBC 12.75 10^3/uL (4.4-10.8)
[2023-08-28 13:46] LABS: TSH (W/Ref FT4) 1.73 uIU/mL (0.36-3.74)
== END 2023-08-28 05:22 | disposition home or self-care (01) ==
PROVIDERS: PCP Nurse Practitioner Family; Visit Provider Nurse Practitioner Family
DX: R53.83 Other fatigue (principal); R05.3 Chronic cough; I10 Essential (primary) hypertension
CPT/HCPCS: 36415; 84443; 85025

== ENCOUNTER → 2023-08-31 02:11 | Outpatient (CLI) | payer MEDICARE, OTHER, SELFPAY ==
--- NOTE | 2023-08-31 12:30 | DI.DEXA_ITS ---
Exam(s) XR DEXA BONE DENSITY W/WO DEDRA EXAM: XR DEXA BONE DENSITY W/WO DEDRA CLINICAL HISTORY: H/O OSTEOPENIA IN 2009,SCREENING FOR OSTEOPOROSIS,Z78.0 TECHNIQUE: COMPARISON: DX DEXA BONE DENSITY WITH DEDRA from 08/05/2009 FINDINGS: Lateral Spine Image: Unremarkable. No compression deformities identified. Left hip: Total T-Score: -1.1. This compares to -1.3 on the prior examination. Total Z-Score: 0.6 T- and Z-scores: Findings are consistent with osteopenia. Lumbar Spine: Total T-Score: -3.3. This compares to -2.2 on the prior examination. Total Z-Score: -1.1 T- and Z-scores: Findings are consistent with osteoporosis. IMPRESSION: Osteoporosis in the lumbar spine.
--- NOTE | 2023-08-31 15:05 | DI.MAMMO_ITS ---
Exam(s) MAMMO SCREENING EXAM: MAMMO SCREENING CLINICAL HISTORY: screening,Z12.39. TECHNIQUE: Bilateral full field digital CC and MLO mammographic images were obtained with 3D tomosyn thesis and utilizing computer aided detection (CAD). COMPARISON: Prior mammograms were reviewed. FINDINGS: There has been no significant change in the appearance and distribution of the fibroglandular tissue. There are no new spiculated masses nor malignant appearing microcalcification groups. There is no significant architectural distortion nor skin thickening-retraction. IMPRESSION: No radiographic evidence of malignancy. BI-RADS Category 1 - Negative Breast Density - Category C - Heterogeneously dense Breast density Category C or D implies that the patient has dense breast tissue. Dense breast tissue can make it harder to find cancer on a mammogram. Dense breast tissue is also associated with an incr eased risk of breast cancer. This information about the result of the mammogram report was provided to the patient to raise their awareness. Use this report when you speak with the patient about their risks for breast cancer, which includes their family history. At that time, you may recommend additional screening tests (Ultrasoun d or MRI) as these tests may add significant information. A negative radiographic report should not delay biopsy if a dominant or clinically suspicious mass is present. Up to ten percent of cancers are not identified on mammography. A negative report may reinforce clinical impression. Adenosis and dense breasts may obscure an underlying neoplasm. False positive reports average 6 to 10%. Patient will receive a letter notifying them of these results.
== END ==
PROVIDERS: PCP Nurse Practitioner Family; Visit Provider Nurse Practitioner Family
DX: Z13.820 Encounter for screening for osteoporosis (principal); Z12.31 Encounter for screening mammogram for malignant neoplasm of breast; Z78.0 Asymptomatic menopausal state; M81.0 Age-related osteoporosis without current pathological fracture
CPT/HCPCS: 77063; 77067; 77080

== ENCOUNTER 2023-09-01 04:40 | Outpatient (CLI) | payer MEDICARE, OTHER, SELFPAY ==
[2023-09-01] MEDS: Inhaler, Assist Device 1 EACH MC (11:14)
[2023-09-01] MEDS: Levalbuterol HFA 15 GM INH 4 PUFF IH (11:14)
--- NOTE | 2023-09-04 10:47 | W.PFT ---
Date of service: 09/01/23 Time of Service: 10:02 Pulmonary Function Test Result Indications: Cough Interpretation Spirometry: There is no airflow limitation. There is a significant bronchodilator response. The FVC is low. Lung Volumes: Normal lung volumes Diffusion Capacity: Normal diffusion Airway Pressure: Normal airways pressure Impression No obstruction but there is a bronchodilator response. The low FVC is likely pseudo-restriction from obesity. Otherwise normal lung function. Clinical Correlation therefore is recommended.
== END 2023-09-01 04:41 | disposition home or self-care (01) ==
LOC: RT 04:40
PROVIDERS: PCP Nurse Practitioner Family; Visit Provider Nurse Practitioner Family
DX: R05.3 Chronic cough (principal); R94.2 Abnormal results of pulmonary function studies
CPT/HCPCS: 94060; 94726; 94729

== ENCOUNTER → 2023-09-06 01:01 | Outpatient (CLI) | payer MEDICARE, OTHER, SELFPAY ==
--- NOTE | 2023-09-06 08:15 | DI.US_ITS ---
APPROVED REPORT EXAM: Comprehensive 2D, Doppler, and color-flow Echocardiogram Patient Location: Out-Patient [employer]: Anton Forman RDCS (AE) Indications: systolic murmur Conclusion 1. LA mildly dilated, othjer chambers normal sizes. 2. Normal LV systolic function, EF 60-65%. Grade 1 diastolic dysfunction. Normal RV function. 3. Moderate posterior nmitral annular calcification, otherwise anatomically normal valves. No signifi cant regurgitation or stenosis. Trace MR/TR. 4. Normal aortic root, mildly dilated ascending aorta. 5. No intracardiac shunt. 6. Trace pericardial effusion. Wall motion Left Ventricle The left ventricle is normal size. The left ventricular systolic function is normal. The left ventric ular ejection fraction is within the normal range. There is normal left ventricular wall thickness. T here is normal LV segmental wall motion. There is no ventricular septal defect visualized. LVEF is 60 -65%. Right Ventricle The right ventricle is normal size. The right ventricular systolic function is normal. Atria The left atrium size is normal. The right atrium size is normal. The interatrial septum is intact wit h no evidence for an atrial septal defect. Aortic Valve The aortic valve is normal in structure. Aortic valve is trileaflet. There is no aortic valvular sten osis. No aortic regurgitation is present. Mitral Valve Moderate mitral annular calcification. No evidence of mitral valve stenosis. Trace mitral regurgitati on. Tricuspid Valve The tricuspid valve is normal in structure. There is no tricuspid valve stenosis. Trace to mild tricu spid regurgitation. The RVSP is 29.7 mmHg. Pulmonic Valve The pulmonary valve is normal in structure. There is no pulmonic valvular stenosis. Trace to mild pul fernando regurgitation. Great Vessels The aortic root is normal in size. The ascending aorta is mildly dilated. IVC is normal in size and c ollapses >50% with inspiration. Pericardium There is no pericardial effusion. 2D Dimensions IVSD d PLAX 0.79 cm F: 0.6-1.0 Ao Root d 2.96 cm F: 2.7 - 3.3 LVPW d PLAX 0.73 cm F: 0.6 - 1.0 Ao Asc Diam d 3.71 cm F: 2.3 - 3.1 LVID d PLAX 4.62 cm F: 3.8 - 5.2 LVDs 2.96 cm F: 2.2 - 3.5 LV EF Teichholz 65.4 % FS 35.81 % LV EDV (Teich) 98.3 mL LV ESV (Teich) 34.0 mL Stroke Vol Index (Teich) 31.19 M-Mode TAPSE 2.64 cm (M/F) >1.7 Auto EF LV EDV A4C 107.7 mL LV EDV A2C 85.3 mL LV EDV BP 95.8 mL LV ESV A4C 43.5 mL LV ESV A2C 31.3 mL LV ESV BP 36.6 mL LVEF(%) A4C 59.6 % LVEF(%) A2C 63.3 % LVEF(%) BP 61.8 % LV SV A4C 64.2 ml LV SV A2C 54.0 ml LV SV BP 59.2 ml LV CO A4C 3.8 L/min LV CO A2C 3.9 L/min LV CO BP 3.8 L/min HR A4C 59.19 BPM HR A2C 72.00 BPM LV EDV Index (BP) LA Volume LA Length A4C 4.3 cm LA Length A2C 4.8 cm LA Area A4C s 10.23 cm2 LA Area A2C s 7.56 cm2 LA Vol A4C A-L 20.75 mL LA Vol A2C A-L 10.14 mL LA Vol Biplane A-L 15.3 mL LA Vol/BSA A4C A-L LA Vol/BSA A2C A-L LA Vol/BSA BP A-L 7.4 mL/m2 LA Vol A4C MOD 19.8 mL LA Vol A2C MOD 9.7 mL LA Vol BP MOD 14.5 mL RA Volume RA Area A4C 8.7 cm2 RA ESV A4C (A-L) 13.4mL RA Vol/BSA A4C A-L RA Length A4C 4.7 cm RA ESV A4C (MOD) 13.0mL LV Diastology MV E' medial 0.111 (>0.07 m/s) MV E Vmax 1.00 (0.4-1.3 m/s) MV E/E' MED 9.05 (<14) MV A Vmax 1.25 (0.4-1.3 m/s) MV E' lateral 0.075 (>0.1 m/s) E/A Ratio 0.8 MV E/E' LAT 13.36 (<14) MV E' Average 0.093 m/s MV E/E'(average) 10.79 Aortic Valve AoV Vmax 1.83 m/s LVOT Vmax 1.20 m/s AoV Peak Grad 13.4 mmHg LVOT Peak Grad 5.8 mmHg AoV Area (Vmax) 1.64 cm2 LVOT VTI 0.252 m AoV VTI 0.388 m LVOT Mean Grad 2.5 mmHg AoV Mean René. 1.13 m/s LVOT SV 62.95 mL AoV Mean Grad 6.1 mmHg LVOT Diam s 1.75 cm AoV Area (VTI) 1.62 cm2 Velocity Ratio 0.66 Mitral Valve MV DT 278 (160-240 msec) Pulmonary Valve PV Vmax 1.17 (0.5-1.5 m/s) RVOT Vmax 0.94 m/s PV Peak Grad 5.4 mmHg RVOT Peak Gr. 3.5 mmHg PV Mean René 0.76 m/s RVOT VTI 0.167 m PV Mean Grad 2.8 mmHg RVOT Mean Gr. 2.1 mmHg Tricuspid Valve RA Pressure 3.00 mmHg TR Vmax 2.59 m/s TR Peak Grad 26.7 mmHg RVSP (TR) 29.7 mmHg
== END ==
PROVIDERS: PCP Nurse Practitioner Family; Visit Provider Nurse Practitioner Family
DX: R01.1 Cardiac murmur, unspecified (principal)
CPT/HCPCS: 93306

== ENCOUNTER 2024-07-25 03:18 | Outpatient (CLI) | payer MEDICARE, OTHER, SELFPAY ==
[2024-07-25 15:03] LABS: Hemoglobin A1C 5.1 % (<5.7)
[2024-07-25 15:40] LABS: ALT 24 U/L (14-59); AST 18 U/L (15-37); Albumin 3.9 g/dL (3.4-5.0); Alkaline Phosphatase 67 U/L (46-116); BUN 16 mg/dL (7-18); Bilirubin, Total 1.62 mg/dL (0.2-1.0); CREATININE 0.8 mg/dL (0.55-1.02); Calcium 9.2 mg/dL (8.5-10.1); Calculated LDL 44 mg/dL (<100); Chloride 103 mmol/L (98-107); Cholesterol 125 mg/dL (<200); Estimated GFR 77.75 (mL/min/1.73m2); Glucose 88 mg/dL (74-106); HDL Cholesterol 49 mg/dL (40-60); Potassium 3.8 mmol/L (3.5-5.1); Sodium 140 mmol/L (136-145); Total Protein 7.9 g/dL (6.4-8.2); Triglyceride 164 mg/dL (<150); Vitamin D 25 Total 17.5 ng/mL (30-100)
[2024-07-25 23:30] LABS: HIV-1/2 Ag & Ab Screen Negative (Negative)
[2024-07-25 23:31] LABS: HBs Antibody, Quant 33.2 mIU/mL (See Note); Hep B Surface Ab Positive (See Note); Hepatitis B Core Antibody Negative (Negative); Hepatitis B Surface Antigen Negative (Negative)
== END 2024-07-25 03:19 | disposition home or self-care (01) ==
PROVIDERS: PCP Nurse Practitioner Family; Visit Provider Nurse Practitioner Family
DX: E78.5 Hyperlipidemia, unspecified (principal); I10 Essential (primary) hypertension; R73.01 Impaired fasting glucose; Z11.59 Encounter for screening for other viral diseases; Z11.4 Encounter for screening for human immunodeficiency virus [HIV]; M81.0 Age-related osteoporosis without current pathological fracture
CPT/HCPCS: 36415; 80053; 80061; 82306; 86704; 86706; 87340; 87389; 83036

== ENCOUNTER 2024-09-02 02:06 | Outpatient (CLI) | payer MEDICARE, OTHER, SELFPAY ==
--- NOTE | 2024-09-02 07:15 | DI.MAMMO_ITS ---
Exam(s) MAMMO SCREENING EXAM: MAMMO SCREENING CLINICAL HISTORY: screening,Z12.39 TECHNIQUE: Mammograms were interpreted according to the usual protocol including computer analysis w [employer] CAD system, tomosynthesis and C-view imaging. COMPARISON: 2017 through 2023 FINDINGS: The breasts are composed of heterogeneously dense fibroglandular densities, Breast Density category C . No suspicious masses or suspicious microcalcifications are seen. No skin thickening or abnormal axillary lymph nodes are seen. There has been no significant change from prior exams. IMPRESSION: BI-RADS Category 1, Negative mammogram. Yearly screening mammography is recommended. Breast Density Category C, heterogeneously Dense. The mammogram demonstrates the patient's breast tissue is dense. Dense breast tissue is very common a nd is not abnormal but dense breast tissue can make it harder to find cancer on a mammogram. Also, de nse breast tissue may increase breast cancer risk. This information about the result of the mammogram report was provided to the patient to raise their awareness. Use this report when you speak with the patient about their risks for breast cancer, which includes their family history. At that time, you may recommend additional screening tests (Ultrasound or MRI) as they might be useful based on their r isk. A negative radiographic report should not delay biopsy if a dominant or clinically suspicious mass is present. Up to ten percent of cancers are not identified on mammography. A negative report may reinforce clinical impression. Adenosis and dense breasts may obscure an underlying neoplasm. False positive reports average 6 to 10%.
== END 2024-09-02 02:26 ==
LOC: DI 02:06
PROVIDERS: PCP Nurse Practitioner Family; Visit Provider Nurse Practitioner Family
DX: Z12.31 Encounter for screening mammogram for malignant neoplasm of breast (principal); R92.323 Mammographic fibroglandular density, bilateral breasts; R92.333 Mammographic heterogeneous density, bilateral breasts
CPT/HCPCS: 77063; 77067

== ENCOUNTER 2024-12-30 01:54 | Outpatient (CLI) | payer MEDICARE, OTHER, SELFPAY ==
--- NOTE | 2024-12-30 07:30 | DI.US_ITS ---
Exam(s) US SOFT TISSUE EXTREMITY EXAM: US SOFT TISSUE EXTREMITY CLINICAL HISTORY: Lump outer lt thigh,rr22.42. TECHNIQUE: Ultrasound was performed using standard protocol. COMPARISON: No exams were available for comparison FINDINGS: Sonographic assessment utilizing grayscale and color Doppler imaging was performed and targeted to th e area of clinical concern. The superior lateral aspect of the left thigh was evaluated for a palpable area. There does appear t o be sonographically a solid isoechoic lesion present measuring 1.3 x 3.6 cm. Its sonographic charac teristics are suggestive of a lipoma. If there is continued clinical concern, an MRI should be consi dered for further evaluation. IMPRESSION: DATA REPOSITORY:
== END 2024-12-30 02:14 ==
LOC: DI 01:54
PROVIDERS: PCP Nurse Practitioner Family; Visit Provider Nurse Practitioner Family
DX: R22.42 Localized swelling, mass and lump, left lower limb (principal)
CPT/HCPCS: 76881

== ENCOUNTER 2025-07-14 03:51 | Outpatient (CLI) | payer MEDICARE, OTHER, SELFPAY ==
[2025-07-14 13:19] LABS: Anion Gap 8 mmol/L (3-11); BUN 16 mg/dL (9-23); CO2 30.0 mmol/L (20.0-31.0); Calcium 8.9 mg/dL (8.3-10.6); Chloride 103 mmol/L (98-107); Glucose 95 mg/dL (74-106); Potassium 4.2 mmol/L (3.5-5.1); Sodium 141 mmol/L (136-145)
[2025-07-14 13:22] LABS: Vitamin D 25 Total 26 ng/mL (30-100)
== END 2025-07-14 03:52 | disposition home or self-care (01) ==
LOC: LBO 03:51
PROVIDERS: PCP Nurse Practitioner Family; Visit Provider Nurse Practitioner Family
DX: M81.0 Age-related osteoporosis without current pathological fracture (principal); I10 Essential (primary) hypertension
CPT/HCPCS: 36415; 80048; 82306

== ENCOUNTER 2025-08-04 10:41 | Outpatient (CLI) | payer MEDICARE, OTHER, SELFPAY ==
[2025-08-04 15:24] LABS: Abs Immature Grans 0.09 10^3/uL (0.0-0.06); HCT 37.3 % (36.0-46.0); HGB 12.3 g/dL (11.2-15.7); Immature Grans % 0.6 %; MCH 28.1 pg (27.0-33.0); MCHC 33.0 % (32.0-36.0); MCV 85 fL (80-95); MPV 12.3 fL (8.0-11.0); Platelet Count 266 10^3/uL (130-400); RBC 4.37 10^6/uL (3.93-5.22); RDW 18.3 % (11.7-14.6); RDW-SD 57.2 fL; WBC 13.89 10^3/uL (4.4-10.8)
[2025-08-04 15:44] LABS: Ferritin 158 ng/mL (7-271)
[2025-08-04 15:45] LABS: TSH (W/Ref FT4) 1.78 uIU/mL (0.55-4.78); Vitamin B12 456 pg/mL (211-911)
[2025-08-04 15:51] LABS: D-Dimer 568 ng/mlFEU (<500)
[2025-08-04 15:53] LABS: ALT 11 U/L (10-49); AST 16 U/L (<34); Albumin 4.2 g/dL (3.2-5.0); Alkaline Phosphatase 55 U/L (46-116); Anion Gap 8.6 mmol/L (3-11); BUN 20 mg/dL (9-23); Bilirubin, Total 2.2 mg/dL (0.2-1.2); CO2 28.4 mmol/L (20.0-31.0); Calcium 8.9 mg/dL (8.3-10.6); Chloride 104 mmol/L (98-107); Glucose 100 mg/dL (74-106); Potassium 3.8 mmol/L (3.5-5.1); Sodium 141 mmol/L (136-145); Total Protein 7.7 g/dL (5.7-8.2)
== END 2025-08-04 10:42 | disposition home or self-care (01) ==
PROVIDERS: PCP Nurse Practitioner Family; Visit Provider Nurse Practitioner Family
DX: R06.09 Other forms of dyspnea (principal); R53.83 Other fatigue; D64.9 Anemia, unspecified
CPT/HCPCS: 36415; 80053; 82607; 82728; 84443; 85025; 85379

== ENCOUNTER 2025-08-04 10:47 | Outpatient (CLI) | payer MEDICARE, OTHER, SELFPAY ==
--- NOTE | 2025-08-04 10:45 | RT.EKG_ITS ---
APPROVED REPORT Exam: Resting ECG Reason for Exam: GUZMAN Patient Location: O HR:61 bpm ECG Measurements Heart Rate 61 AXIS PA 142 P 63 QRSd 103 QRS 56 QT 421 T 26 QTc 424 Conclusion Sinus rhythm...normal P axis, V-rate 50- 99 Atrial premature complexes...SV complexes w/ short R-R intvls Otherwise normal ECG
== END 2025-08-04 10:48 | disposition home or self-care (01) ==
PROVIDERS: PCP Nurse Practitioner Family; Visit Provider Nurse Practitioner Family
DX: R06.09 Other forms of dyspnea (principal)
CPT/HCPCS: 93010

== ENCOUNTER → 2025-08-07 10:23 | Outpatient (CLI) | payer MEDICARE, OTHER, SELFPAY ==
--- NOTE | 2025-08-07 10:15 | DI.CT_ITS ---
Exam(s) CT CHEST PE CTA EXAM: CT CHEST PE CTA CLINICAL HISTORY: dyspnea on exertion, fatigue, R06.09, R53.83. TECHNIQUE: Imaging Protocol: Axial CT angiography was performed with multi- slice acquisition and multi-planar and/or 3D reconstructions. Lung Computer Aided Detection (CAD) was utilized. CONTRAST MATERIAL: Intravenous: Omnipaque 350 contrast volume:80 mL COMPARISON: CT ABD PELVIS WITH CONTRAST from 06/13/[address] CHEST WO from 07/25/2023 FINDINGS: Tracheobronchial tree: There is mild bronchial wall thickening. No mucous plugging is seen. No bronchiectasis. Pulmonary parenchyma: There are no focal consolidating infiltrates. There are ground-glass opacity seen in the lungs. Calcified granuloma are present. There are hypoventilatory changes in the lungs. There are few small pulmonary nodules which are noncalcified. The largest measures 6 mm and is in the posterior right lower lobe (series 14, image 88). These are stable compared to prior examinations. Pulmonary Arteries: No evidence of filling defect to suggest pulmonary emboli. Mediastinum and Jeniffer: No dominant adenopathy or fluid collection. The esophagus is unremarkable. There are calcified lymph nodes in the mediastinum consistent with prior granulomatous disease. There is a small hiatal hernia. Visualized thyroid gland: Unremarkable. Pleura: No effusion or pneumothorax. Heart: The heart is enlarged. Coronary artery calcifications are present. No pericardial effusion. Aorta: The ascending thoracic aorta measures 3.8 x 3.7 cm. Atherosclerotic calcification is present. Upper abdomen: Unremarkable. Soft tissues: Unremarkable. Bones: Within normal limits for the patient's age. IMPRESSION: 1. There is no evidence of a pulmonary embolism. 2. Ground-glass opacities in the lungs. This may be due to poor inspiration. Infectious process should also be considered. Please correlate clinically. 3. Stable calcified and noncalcified pulmonary nodules. RADIATION DOSE DELIVERED: 108.43mGy.cm Total DLP DATA REPOSITORY: All CT scans at this facility are submitted to the National Radiology Data Registry (NRDR) Dose Index Registry (DIR) with the [employer] (ACR). RADIATION OPTIMIZATION: All CT scans at this facility use at least one of these dose optimization techniques: automated exposure control; mA and/or kV adjustment per patient size (includes targeted exams where dose is matched to clinical indication); or iterative reconstruction.
[2025-08-07] MEDS: Omnipaque 350 MG/ML 100 ML BTL IJ (12:43)
[2025-08-07] MEDS: Normal Saline - Diluent 50 ML VIAL IJ (12:44)
== END ==
LOC: DI 10:23
PROVIDERS: PCP Nurse Practitioner Family; Visit Provider Nurse Practitioner Family
DX: R06.09 Other forms of dyspnea (principal); R53.83 Other fatigue
CPT/HCPCS: 71275; J3490

== ENCOUNTER → 2025-08-11 00:10 | Outpatient (CLI) | payer MEDICARE, OTHER, SELFPAY ==
--- NOTE | 2025-08-11 06:45 | DI.NM_ITS ---
APPROVED REPORT Exam: Pharmacologic Patient Location: Out-Patient Room/Bed: Stress Nurse: Milena Villegas RN Ordering Provider:SEE SHAHID, Contact Number: [phone] BMI: 40.02 Baseline Rhythm: Sinus Rhythm Indications: GUZMAN, fatigue Medical History Medical History: HTN, HLD, anxiety, obesity, IBS, intermittent palpitations, Gilbert's Disease Cardiac Medications: aspirin, albuterol sulfate, metoprolol tartrate, amlodipine, HCTZ, citalopram, lisinopril, simvastatin Allergies: penicillins, compazine Cardiac Risk Factors: HTN, HLD, obesity Previous Cardiac Procedures: n/a Pretest Chest Pain Characteristics: No chest pain Exercise History: Indeterminate Physical Disabilities: n/a Lung Sounds: Clear to auscultation Heart Sounds: Regular Stress Test Details Test: Pharmacologic stress was paired with low level exercise. Reason for pharmacologic stress test: beta gladys. Nuclear Acquisition: Rest Tc-99m/Stress Tc-99m 1 day Rest Isotope: Tc-99m Sestamibi. Dose: 10.0 Date: 08/11/2025 Injection Time: 0900 Stress Isotope: Tc-99m Sestamibi. Dose: 30.0 Date: 08/11/2025 Injection Time: 1044 HR Resting HR Supine: 61 bpm Max Heart Rate (APMHR): 146 bpm Resting HR Standin bpm Target HR (85% APMHR): 124 bpm Max HR Achieved: 113 bpm % of APMHR: 77 Recovery HR: 83 bpm BP Resting BP Supine: 130/80 mmHg Resting BP Standin/76 mmHg Max BP: 150/80 mmHg Recovery BP: 150/70 mmHg ECG Resting ECG: Sinus Rhythm Ectopy: rare PAC Stress ECG: Sinus Tachycardia ST Change: , No significant ST segment changes noted Arrhythmia: None Recovery ECG: Sinus Rhythm Recovery Arrhythmia: None Clinical Stress Symptoms: Dyspnea, Nausea Angina Score: None Rate Pressure Product: [id number] Stress ECG Conclusion 1. Resting electrocardiogram was normal 2. Patient underwent testing using combination of low-level exercise and pharmacologic stress with regadenoson 3. Peak heart rate achieved was 77% of maximal predicted for age 4. Electrocardiographic portion of the test was nondiagnostic 5. See MPI report Stress Test Summary STAGE HR BP SpO2 Symptoms NOTES Supine 61 130/80 95 Standing 68 140/76 1 min post Lexiscan injection 110 150/80 mild SOB 3 min post Lexiscan injection 98 130/68 nausea 6 min post Lexiscan injection 83 150/70 Walking hussein performed r/t inability to hold beta gladys. Although pt did not meet target HR, upsloping, downsloping and horizontal ST depressions noted in leads II, III, and aVF. Mild SOB and nausea reported by patient. All symptoms resolved by end of test and pt left ambulatory in no acute distress. MPI Conclusion Myocardial perfusion was normal. There was no ischemia or evidence of prior infarction Left ventricular systolic function was hyperdynamic
[2025-08-11] MEDS: Regadenoson 0.4 MG/5 ML SYR IVP (10:44)
== END ==
LOC: DI 00:10
PROVIDERS: PCP Nurse Practitioner Family; Visit Provider Nurse Practitioner Family
DX: R06.09 Other forms of dyspnea (principal); R53.83 Other fatigue
CPT/HCPCS: 78452; 93016; 93018; 93017; J2785